=== PATIENT | male | born 1940 | race Caucasian/White ===

== ENCOUNTER 2016-10-03 23:29 | Inpatient (IN) | payer MEDICARE, OTHER ==
[2016-10-03 23:57] LABS: % BASOPHILS 0.4 % (0.0-2.0); % EOSINOPHILS 1.8 % (0.0-5.0); % LYMPHOCYTES 26.1 % (20.0-50.0); % MONOCYTES 7.3 % (2.0-10.0); % NEUTROPHILS 64.4 % (40.0-80.0); HEMATOCRIT 43.4 % (39.0-49.0); HEMOGLOBIN 14.4 gm/dL (12.6-17.4); MEAN CELL VOLUME 92.7 fl (80-99); MEAN CORPUSCULAR HEMOGLOBIN 30.7 pg (27.0-31.0); MEAN CORPUSCULAR HGB CONC 33.2 pg (28.0-36.0); MEAN PLATELET VOLUME 7.5 fl; NEUTROPHILE ABSOLUTE 4.6 Th/cmm (1.8-8.0); PLATELET COUNT 362 Th/cmm (150-400); RED BLOOD COUNT 4.69 Mil/cmm (3.80-5.80); RED CELL DISTRIBUTION WIDTH 12.8 % (11.5-20.0); WHITE BLOOD COUNT 7.1 Th/cmm (4.8-10.8)
--- NOTE | 2016-10-04 00:05 | ED Physician Chart ---
Chief Complaint/HPI - Patient Information Date Seen:: 10/03/16 Time Seen:: 23:39 Chief Complaint:: PSYCHOSIS History of Present Illness:: THIS IS A 76 YO MALE WHO WAS SENT HERE FOR EVALUATION AND TREATMENT FOR AH PSYCHIATRIC CONDITION. HE HAS BEEN REFUSING TO SHOWER, EAT AND COOPERATE WITH THE STAFF. HE ALSO REFUSES TO CHANGE CLOTHES. THIS PATIENT HAS A HISTORY OF DEPRESSION AND ANXIETY. Allergies:: Allergies Allergy/AdvReac Type Severity Reaction Status Date / Time No Known Allergies Allergy Verified 10/03/16 23:38 Vitals:: Vital Signs - 8 hr 10/03/16 23:30 Temp 98.0 F HR 94 RR 18 BP 124/87 O2 Sat % 97 Historian:: EMS, Medical Records Review:: Nurse's Note Reviewed, Transfer documents Reviewed Review of Systems - Review of Systems General/Constitutional: No fever, No chills, No weight loss, No weakness, No diaphoresis, No edema, No loss of appetite, Other (THIS PATIENT CANNOT GIVE A REVIEW OF SYSTEMS BECAUSE OF HIS ATTITUDE.) Skin: No skin lesions, No rash, No bruising Head: No headache, No light-headedness Eyes: No loss of vision, No pain, No diplopia ENT: No earache, No nasal drainage, No sore throat, No tinnitus Neck: No neck pain, No swelling, No thyromegaly, No stiffness, No mass noted Cardio Vascular: No chest pain, No palpitations, No PND, No orthopnea, No edema Pulmonary: No SOB, No cough, No sputum, No wheezing GI: No nausea, No vomiting, No diarrhea, No pain, No melena, No hematochezia, No constipation, No hematemesis G/U: No dysuria, No frequency, No hematuria Musculoskeletal: No bone or joint pain, No back pain, No muscle pain Endocrine: No polyuria, No polydipsia Psychiatric: No prior psych history, No depression, No anxiety, No suicidal ideation Hematopoietic: No bruising, No lymphadenopathy Allergic/Immuno: No urticaria, No angioedema Neurological: No syncope, No focal symptoms, No weakness, No paresthesia, No headache, No seizure, No dizziness, No confusion, No vertigo Past Medical History - Past Medical History Obtainable: Yes Past Medical History: Dementia, Other (PSYCHOSIS) Family History: None Social History: Non Smoker, No Alcohol, No Drug Use, Care Facility Surgical History: None Psychiatricy History: Depression, Schizophrenia Medication: Reviewed Family Medical History - Family Member Mother History Unknown: Yes Physical Exam - Physical Examination General/Constitutional: Awake, Well-developed, well-nourished, Alert, No distress, GCS 15, Non-toxic appearing, Ambulatory Other Gen/Cons comments:: THIS PATIENT IS THIN AND UNKEPT AND UNCOOPERATIVE Head: Atraumatic Eyes: Lids, conjuctiva normal, PERRL, EOMI Skin: Nl inspection, No rash, No skin lesions, No ecchymosis, Well hydrated, No lymphadenopathy ENMT: External ears, nose nl, Nasal exam nl, Lips, teeth, gums nl Neck: Nontender, Full ROM w/o pain, No JVD, No nuchal rigidity, No bruit, No mass, No stridor Respiratory: Nl effort/Exclusion, Clear to Auscultation, No Wheeze/Rhonchi/Rales Cardio Vascular: RRR, No murmur, gallop, rubs, NL S1 S2 GI: No tenderness/rebounding/guarding, No organomegaly, No hernia, Normal BS's, Nondistended, No mass/bruits, No McBurney tenderness : No CVA tenderness Extremities: No tenderness or effusion, Full ROM, normal strength in all extremities, No edema, Normal digits & nails Neuro/Psych: Alert/oriented, DTR's symmetric, Normal sensory exam, Normal motor strength, Judgement/insight normal, Mood normal, Normal gait, No focal deficits Misc: normal gait, Normal back, No paraspinal tenderness Labs/Radiology/EKG Results - EKG Interpretations EKG Time:: 23:53 Rate & Rhythm: 94 SINUS [place]: RIGHT AXIS Assessment - Assessment General Assessment: PSYCHOSIS THIS PATIENT IS CLEARED FOR GEROPSYCH UNIT. ED Septic Shock - . Is Septic Shock (SBP<90, OR Lactate>4 mmol\L) present?: No - <6hrs of presentation: Vital Signs: Vital Signs - 8 hr 10/03/ 23:30 Temp 98.0 F HR 94 RR 18 BP 124/87 O2 Sat % 97 Reassessment (Disposition) - Reassessment Reassessment Condition:: Unchanged - Diagnosis Diagnosis:: PSYCHOSIS - Patient Disposition Discharge/Transfer:: Acute Care w/in this hosp Admitted to:: Med/Surg Admitting Medical Physician:: Francisco Funez Admitting Psych Physician:: Camila Rodríguez Condition at Disposition:: Unchanged ED Discharge Plan - Patient Disposition Admit/Discharge/Transfer: Acute Care w/in this hosp Condition at Disposition: Unchanged
[2016-10-04 00:10] LABS: INR 0.94 (0.5-1.4); PROTHROMBIN TIME (TEST) 9.8 SECONDS (9.5-11.5)
[2016-10-04 00:12] LABS: ALB/GLOB RATIO 0.9 (1.0-1.8); ALKALINE PHOSPHATASE 73 U/L (34-104); BILIRUBIN,TOTAL 0.3 mg/dL (0.3-1.0); BUN - UREA NITROGEN 16 mg/dL (7-25); CALCIUM SERUM 9.4 mg/dL (8.6-10.3); CARBON DIOXIDE 26.3 mEq/L (21.0-31.0); CHLORIDE 103 mEq/L (98-107); CREATININE - SERUM 0.8 mg/dL (0.7-1.3); GLUCOSE 128 mg/dL (70-105); POTASSIUM SERUM 3.3 mEq/L (3.5-5.1); SGOT 39 U/L (13-39); SGPT/ALT 67 U/L (7-52); SODIUM SERUM 134 mEq/L (136-145)
[2016-10-04 00:13] LABS: CHOLESTEROL 222 mg/dL (<200); TRIGLYCERIDES 164 mg/dL (<150)
[2016-10-04] MEDS ORDERED: Potassium Chloride Elixir 20 mEq /15 mL UDC PO ONE (00:20)
[2016-10-04] MEDS ORDERED: Potassium Chloride 20 mEq ER Tab PO ONE (00:23)
[2016-10-04] MEDS ORDERED: Potassium Chloride Elixir 20 mEq /15 mL UDC ONE (00:28)
[2016-10-04] MEDS ORDERED: Maalox 30 mL Cup PO PRN (01:10)
[2016-10-04] MEDS ORDERED: Magnesium Hydroxide (MOM) 30 mL UDC PO PRN (01:10)
[2016-10-04 01:21] VITALS: BP 131/76
[2016-10-04] MEDS ORDERED: Hydrocodone/APAP 5mg/325mg Tab PO PRN (01:36)
--- NOTE | 2016-10-04 08:06 | History and Physical ---
History of Present Illness - HPI Chief Complaint: psychosis HPI: [age] y/o male who presents to [facility] ER for evaluation and treatment. Patient has been refusing to shower, eat and cooperate with the staff. He also refuses to change clothes. The patient has a history of depression and anxiety and schozophrenia. Vital Signs: Last Vital Signs Temp 98.5 F 10/04/16 05:54 Pulse 102 10/04/16 05:54 Resp 20 10/04/16 05:54 BP 129/73 10/04/16 05:54 Pulse Ox 95 10/04/16 05:54 Past Medical History Cardiovascular: Report: CAD Pulmonary: Report: No Pertinent Hx LIGHTING TECHNICIAN: Report: No Pertinent Hx GI: Report: No Pertinent Hx Psych: Report: Anxiety, Depression, Psychosis, Schizophrenia Musculoskeletal: Report: No Pertinent Hx Rheumatologic: Report: No pertinent Hx Infectious Disease: Report: No Pertinent Hx Renal/: Report: No Pertinent Hx Endocrine: Report: No Pertinent Hx Dermatology: Report: No Pertinent Hx - Past Surgical History Past Surgical History: No pertinent Hx Family Medical History - Family Member Mother History Unknown: Yes Ethnicity: Unknown Living Status: Unknown Hx Family Cancer: (Unknown) Hx Family Coronary Artery Disease: (Unknown) Hx Family Congestive Heart Failure: (Unknown) Hx Family Hypertension: (Unknown) Hx Family Stroke: (Unknown) Hx Family Diabetes: (Unknown) Hx Family Seizures: (Unknown) Hx Family Dementia: (Unknown) Hx Family AIDS: (Unknown) Hx Family HIV: No Hx Family COPD: (Unknown) Hx Family Hepatitis: (Unknown) Hx Family Psychiatric Problems: (Unknown) Hx Family Tuberculosis: (Unknown) Social History Smoke: No Alcohol: None Drugs: None Lives: [facility] - Medications Home Medications: Home Medication Medication Instructions Recorded Type Aspirin [Ecotrin] 1 tab PO DAILY 10/04/16 History Calcium Carbonate [Tums] 600 mg PO Q4HR PRN 10/04/16 History Calcium Carbonate/Vitamin D3 1 cap PO BID 10/04/16 History [Calcium 600 + Vit D 400 Softgl] Carboxymethylcellulose Sodium 1 drop EACH EYE BID PRN 10/04/16 History [Refresh Tears] Diphenhydramine HCL [Benadryl] 1 tab PO Q4HR PRN 10/04/16 History Docusate Sodium [Colace] 1 cap PO BID 10/04/16 History Hydrocodone/Acetaminophen [[place] 1 tab PO Q4H PRN 10/04/16 History 7.5-325 Tablet] Lorazepam [Ativan] 0.5 mg PO BID PRN 10/04/16 History Magnesium Hydroxide [Milk of 30 ml PO DAILY PRN 10/04/16 History Magnesia] Multivitamin with Minerals [Daily 1 tab PO DAILY 10/04/16 History Vitamin Formula-Minerals] Trazodone HCl 125 mg PO HS 10/04/16 History - Allergies Allergies/Adverse Reactions: Allergies Allergy/AdvReac Type Severity Reaction Status Date / Time No Known Allergies Allergy Verified 10/03/16 23:38 Review of Systems - Review of Systems Constitutional: Report: No Significant Eyes: Report: No Significant ENT: Report: No Significant Respiratory: Report: No Significant Cardiovascular: Report: No Significant Gastrointestinal: Report: No Significant Genitourinary: Report: No Significant Musculoskeletal: Report: No Significant Skin: Report: No Significant Neurological: Report: No Significant Physical Exam - Physical Exam HEENT: Report: Ears Nose Throat within normal limits, Pharnyx within normal limits Neck: Report: Within normal limits Cardiovascular Systems: Report: Regular, Rate and Rhythm Respiratory: Report: Breath Sounds are within normal limits, Clear to Auscultation of lung rainey Abdomen: Report: Non-tender to palpation Back: Report: Inspection of back is within normal limits. Extremities: Report: Non-tender to palpation. Skin: Report: Color of skin is within normal limits Neuro/Psych: Report: A+Ox3 - Lab Results All Lab Results last 24 hours: Laboratory Last Values WBC 7.1 Th/cmm (4.8-10.8) 10/03/16 23:45 RBC 4.69 Mil/cmm (3.80-5.80) 10/03/16 23:45 Hgb 14.4 gm/dL (12.6-17.4) 10/03/16 23:45 Hct 43.4 % (39.0-49.0) 10/03/16 23:45 MCV 92.7 fl (80-99) 10/03/16 23:45 MCH 30.7 pg (27.0-31.0) 10/03/16 23:45 MCHC Differential 33.2 pg (28.0-36.0) 10/03/16 23:45 RDW 12.8 % (11.5-20.0) 10/03/16 23:45 Plt Count 362 Th/cmm (150-400) 10/03/16 23:45 MPV 7.5 fl 10/03/16 23:45 Neutrophils % 64.4 % (40.0-80.0) 10/03/16 23:45 Lymphocytes % 26.1 % (20.0-50.0) 10/03/16 23:45 Monocytes % 7.3 % (2.0-10.0) 10/03/16 23:45 Eosinophils % 1.8 % (0.0-5.0) 10/03/16 23:45 Basophils % 0.4 % (0.0-2.0) 10/03/16 23:45 PT 9.8 SECONDS (9.5-11.5) 10/03/16 23:45 INR 0.94 (0.5-1.4) 10/03/16 23:45 PTT (Actin FS) 24.9 SECONDS (26.0-38.0) L 10/03/16 23:45 Sodium 134 mEq/L (136-145) L 10/03/16 23:45 Potassium 3.3 mEq/L (3.5-5.1) L 10/03/16 23:45 Chloride 103 mEq/L (98-107) 10/03/16 23:45 Carbon Dioxide 26.3 mEq/L (21.0-31.0) 10/03/16 23:45 Anion Gap 8.0 (7.0-16.0) 10/03/16 23:45 BUN 16 mg/dL (7-25) 10/03/16 23:45 Creatinine 0.8 mg/dL (0.7-1.3) 10/03/16 23:45 Est GFR ( Amer) TNP 10/03/16 23:45 Est GFR (Non-Af Amer) TNP 10/03/16 23:45 BUN/Creatinine Ratio 20.0 10/03/16 23:45 Glucose 128 mg/dL (70-105) H 10/03/16 23:45 Calcium 9.4 mg/dL (8.6-10.3) 10/03/16 23:45 Total Bilirubin 0.3 mg/dL (0.3-1.0) 10/03/16 23:45 AST 39 U/L (13-39) 10/03/16 23:45 ALT 67 U/L (7-52) H 10/03/16 23:45 Alkaline Phosphatase 73 U/L (34-104) 10/03/16 23:45 Troponin I 0.02 ng/mL (0.01-0.05) 10/03/16 23:45 Total Protein 5.8 gm/dL (6.0-8.3) L 10/03/16 23:45 Albumin 2.8 gm/dL (4.2-5.5) L 10/03/16 23:45 Globulin 3.0 gm/dL 10/03/16 23:45 Albumin/Globulin Ratio 0.9 (1.0-1.8) L 10/03/16 23:45 Triglycerides 164 mg/dL (<150) H 10/03/16 23:45 Cholesterol 222 mg/dL (<200) H 10/03/16 23:45 LDL Cholesterol Direct 140 mg/dL (75-193) 10/03/16 23:45 HDL Cholesterol 58 mg/dL (23-92) 10/03/16 23:45 TSH 0.89 uIU/ml (0.34-5.60) 10/03/16 23:45 - Assessment Assessment: Psychosis Major depression disorder Coronary artery disease peripheral vascular disease anxiety radiculopathy leg pain - Plan Plan: admit to [facility] specialty hospital for evaluation and treatment.
[2016-10-04] MEDS: Aspirin 81mg Chewable Tab PO SCH (09:11)
[2016-10-04] MEDS: Multivitamin Tab PO SCH (09:12)
--- NOTE | 2016-10-04 09:42 | Diagnostic Imaging Report ---
Portable chest x-ray History: Shortness of breath Allowing for portable technique the heart size is normal. Atherosclerotic calcification seen in the aortic arch. No focal pulmonary parenchymal processes. No hilar or mediastinal abnormalities. Impression: No acute abnormalities.
--- NOTE | 2016-10-04 22:08 | Admit Criteria Form ---
Admit Criteria Forms - Admit Criteria Diagnosis: PSYCHIATRIC DISORDERS (Place 'X' for any and all applicable criteria): Ongoing inpatient care may be needed for 1 or more of the following(1)(2)(3)(4)( 6)(7)(8): [ ]I. Danger to self or others not manageable at lower level of care. [ ]II. Grave disability (eg, inability to perform self care necessary at lower level of care) [ ]III. Agitation or inappropriate behavior interfering with care for primary condition (eg, attempting to discontinue lines or drains prematurely, unable to cooperate with respiratory care) [X ]IV. Severe disability or disorder indicated by ALL of the following: [X ]a) Severe behavioral health disorder-related symptoms or condition indicated by 1 or more of the following: [ ]i) Severe problem with cognition, memory, judgment, or impulse control [X ]ii) Severe clinical manifestations (eg, hallucinations , delusions, other acute psychotic symptoms, rogers, extreme agitation or anxiety) [X ]b) Patient management at lower level of care is not feasible until acute intervention or modification is initiated. Extended stay beyond goal length of stay for the primary condition may be needed until ALLof the following are present(1)(2)(3)(4)(7)19)(23): [ ]a) Danger to self or others is absent or manageable at lower level of care [ ]b) Behavior crisis management, including physical or chemical restraints, is required and is not available at a lower level of care. [ ]c) Behavioral symptoms (e.g., agitation, somnolence, inappropriate behavior) are present, and are not manageable at a lower level of care. [ ]d) Patient cannot understand follow-up treatment and crisis plan. [ ]e) Provider and supports are sufficiently available at lower level of care. [ ]f) Patient can participate (e.g., verify absence of plan for harm) and is in needed of monitoring. The [facility] content created by [facility] has been revised. The portions of the content which have been revised are identified through the use of italic text or in bold, and [facility] has neither reviewed nor approved the modified material. All other unmodified content is copyright [facility]. Please see references footnoted in the original [facility] edition 2017 Admit Criteria Met?: Yes
--- NOTE | 2016-10-05 04:44 | Psychosocial Evaluation ---
DATE OF SERVICE: 10/04/2016 IDENTIFYING DATA: The patient is a 76-year-old male, resident of [facility]. Information obtained by directly interviewing the patient as well as reviewing the admission papers and they are reliable. JUSTIFICATION HOSPITALIZATION: The patient is admitted on a voluntary basis in view of his acute agitation and refusal of care. The patient is reported to have been refusing to shower and has been becoming difficult for the staff. The patient also refusing to eat and cooperate with the staff and the patient refuses change his clothes. The patient has a history of depression, but patient at the time of the evaluation is closing eyes and is not providing much of information. Review of the chart indicated that the patient has been taking trazodone 125 mg at bedtime and [place] ____ mg every 4 hours as needed. The patient has been refusing to comply with the treatment. As mentioned earlier, sleep and appetite are noted to be very poor, personal hygiene is also noted to be very poor. PAST PSYCHIATRIC HISTORY: Details are not known. MEDICAL HISTORY: Physical examination is requested to be done by Dr. Funez. SUBSTANCE ABUSE HISTORY: None. PHYSICAL OR SEXUAL ABUSE: Details are not known. Legal problems none at this time. STRENGTH AND ASSETS: The patient is reluctant to participate in the groups and not providing much information, but seems to be very paranoid. Short and long-term memory could not be tested because the patient is not cooperating at this time. The patient's behavior is likely danger to self. The patient is neglecting himself and not eating, not sleeping. DIAGNOSTIC IMPRESSION: AXIS I: Major depressive disorder, recurrent and severe. B. Psychosis, not otherwise specified. AXIS II: None. AXIS III: As per Dr. Funez. ____ TREATMENT PLAN: The patient is going to be observed on inpatient unit, provided with supportive psychotherapy. The patient is going to be started with the trazodone and a low dose of the Seroquel. ESTIMATED LENGTH OF STAY: Three to five days. DISCHARGE CRITERIA: When he no longer a threat to self or others and be able to cope up with the stress. JOB# [id number]
--- NOTE | 2016-10-05 08:27 | General Progress Note ---
Subjective - Review of Systems Service Date: 10/05/16 Subjective: Patient afebrile, awake, alert Objective - Results Result Diagrams: 10/03/16 23:45 10/03/16 23:45 Recent Labs: Laboratory Last Values WBC 7.1 Th/cmm (4.8-10.8) 10/03/16 23:45 RBC 4.69 Mil/cmm (3.80-5.80) 10/03/16 23:45 Hgb 14.4 gm/dL (12.6-17.4) 10/03/16 23:45 Hct 43.4 % (39.0-49.0) 10/03/16 23:45 MCV 92.7 fl (80-99) 10/03/16 23:45 MCH 30.7 pg (27.0-31.0) 10/03/16 23:45 MCHC Differential 33.2 pg (28.0-36.0) 10/03/16 23:45 RDW 12.8 % (11.5-20.0) 10/03/16 23:45 Plt Count 362 Th/cmm (150-400) 10/03/16 23:45 MPV 7.5 fl 10/03/16 23:45 Neutrophils % 64.4 % (40.0-80.0) 10/03/16 23:45 Lymphocytes % 26.1 % (20.0-50.0) 10/03/16 23:45 Monocytes % 7.3 % (2.0-10.0) 10/03/16 23:45 Eosinophils % 1.8 % (0.0-5.0) 10/03/16 23:45 Basophils % 0.4 % (0.0-2.0) 10/03/16 23:45 PT 9.8 SECONDS (9.5-11.5) 10/03/16 23:45 INR 0.94 (0.5-1.4) 10/03/16 23:45 PTT (Actin FS) 24.9 SECONDS (26.0-38.0) L 10/03/16 23:45 Sodium 134 mEq/L (136-145) L 10/03/16 23:45 Potassium 3.3 mEq/L (3.5-5.1) L 10/03/16 23:45 Chloride 103 mEq/L (98-107) 10/03/16 23:45 Carbon Dioxide 26.3 mEq/L (21.0-31.0) 10/03/16 23:45 Anion Gap 8.0 (7.0-16.0) 10/03/16 23:45 BUN 16 mg/dL (7-25) 10/03/16 23:45 Creatinine 0.8 mg/dL (0.7-1.3) 10/03/16 23:45 Est GFR ( Amer) TNP 10/03/16 23:45 Est GFR (Non-Af Amer) TNP 10/03/16 23:45 BUN/Creatinine Ratio 20.0 10/03/16 23:45 Glucose 128 mg/dL (70-105) H 10/03/16 23:45 Calcium 9.4 mg/dL (8.6-10.3) 10/03/16 23:45 Total Bilirubin 0.3 mg/dL (0.3-1.0) 10/03/16 23:45 AST 39 U/L (13-39) 10/03/16 23:45 ALT 67 U/L (7-52) H 10/03/16 23:45 Alkaline Phosphatase 73 U/L (34-104) 10/03/16 23:45 Troponin I 0.02 ng/mL (0.01-0.05) 10/03/16 23:45 Total Protein 5.8 gm/dL (6.0-8.3) L 10/03/16 23:45 Albumin 2.8 gm/dL (4.2-5.5) L 10/03/16 23:45 Globulin 3.0 gm/dL 10/03/16 23:45 Albumin/Globulin Ratio 0.9 (1.0-1.8) L 10/03/16 23:45 Triglycerides 164 mg/dL (<150) H 10/03/16 23:45 Cholesterol 222 mg/dL (<200) H 10/03/16 23:45 LDL Cholesterol Direct 140 mg/dL (75-193) 10/03/16 23:45 HDL Cholesterol 58 mg/dL (23-92) 10/03/16 23:45 TSH 0.89 uIU/ml (0.34-5.60) 10/03/16 23:45 - Physical Exam Vitals and I&O: Vital Signs Temp 98.6 F 10/05/16 06:40 Pulse 106 10/05/16 06:40 Resp 20 10/05/16 06:40 BP 110/76 10/05/16 06:40 Pulse Ox 95 10/05/16 06:40 Intake & Output 10/04/16 10/05/16 10/05/16 18:59 06:59 18:59 Intake Total 800 240 Balance 800 240 Intake: Oral 800 240 Other: # Voids 3 2 # Bowel Movements 0 1 Active Medications: Current Medications Acetaminophen (Tylenol) 650 mg PO Q4HR PRN PRN Reason: Mild Pain / Temp above 100 Stop: 12/03/16 01:09 Acetaminophen/Hydrocodone Bitart ([place] 5mg/325mg) 1 tab PO Q4H PRN PRN Reason: Pain (Moderate) Stop: 12/03/16 01:35 Al Hydrox/Mg Hydrox/Simethicone (Maalox) 30 ml PO Q4HR PRN PRN Reason: GI DISTRESS Stop: 12/03/16 01:09 Aspirin (Aspirin Chewable) 81 mg PO DAILY [facility] Stop: 12/03/16 08:59 Last Admin: 10/04/16 09:11 Dose: 81 mg Calcium Carbonate (Tums) 500 mg PO Q4HR PRN PRN Reason: GI upset Stop: 12/03/16 03:59 Diphenhydramine HCl (Benadryl) 25 mg PO Q4HR PRN PRN Reason: Itching Stop: 12/03/16 01:31 Docusate Sodium (Colace) 250 mg PO BID DOMINGO Stop: 12/03/16 08:59 Last Admin: 10/04/16 16:53 Dose: 250 mg Lorazepam (Ativan) 0.5 mg PO Q4HR PRN; Protocol PRN Reason: Anxiety Stop: 11/03/16 01:09 Magnesium Hydroxide (Milk Of Magnesia) 30 ml PO HS PRN PRN Reason: Constipation Multivitamins/Vitamin C (Theragran) 1 tab PO DAILY DOMINGO Stop: 12/03/16 08:59 Last Admin: 10/04/16 09:12 Dose: 1 tab Quetiapine Fumarate (Seroquel) 12.5 mg PO HS DOMINGO PRN Reason: Protocol Stop: 12/03/16 20:59 Last Admin: 10/04/16 21:11 Dose: Not Given Trazodone HCl (Desyrel) 50 mg PO HS DOMINGO PRN Reason: Protocol Stop: 12/03/16 20:59 Last Admin: 10/04/16 21:11 Dose: Not Given Zolpidem Tartrate (Ambien) 5 mg PO HS PRN PRN Reason: Insomnia Stop: 12/03/16 01:09 Assessment/Plan - Assessment Assessment: Psychosis Major depression disorder Coronary artery disease peripheral vascular disease anxiety radiculopathy leg pain - Plan Plan: Patient is medically stable will continue current treatment.
[2016-10-05] MEDS: Aspirin 81mg Chewable Tab PO SCH (08:32)
[2016-10-05] MEDS: Multivitamin Tab PO SCH (08:32)
--- NOTE | 2016-10-05 23:23 | Progress Notes ---
DATE: 10/05/2016 SUBJECTIVE: Staff was spoken to. The patient is interviewed. Mood is noted to be irritable. Affect is constricted. Coping skills are noted to be very poor. The patient is refusing to comply with the treatment. The patient has been refusing to follow any of the directions. Insight and judgment at this time are noted to be very much impaired. Impulse control seems to be poor. Coping skills are also noted to be poor. The patient has no insight into his illness. The patient has been ordered to take a low dose of the Seroquel, but the patient has been refusing even the 12.5 mg that has been ordered. The patient's sleep and appetite are also noted to be very poor. ASSESSMENT: The patient is still psychotic. PLAN: To continue the patient with the current medications. I encouraged the patient to verbalize the concerns rather than to act out. If the patient continues to be this way probably a Riese hearing is going to be done. [facility]# [id number]
--- NOTE | 2016-10-06 07:30 | General Progress Note ---
Subjective - Review of Systems Service Date: 10/06/16 Subjective: Patient afebrile, awake, alert Objective - Results Result Diagrams: 10/03/16 23:45 10/03/16 23:45 Recent Labs: Laboratory Last Values WBC 7.1 Th/cmm (4.8-10.8) 10/03/16 23:45 RBC 4.69 Mil/cmm (3.80-5.80) 10/03/16 23:45 Hgb 14.4 gm/dL (12.6-17.4) 10/03/16 23:45 Hct 43.4 % (39.0-49.0) 10/03/16 23:45 MCV 92.7 fl (80-99) 10/03/16 23:45 MCH 30.7 pg (27.0-31.0) 10/03/16 23:45 MCHC Differential 33.2 pg (28.0-36.0) 10/03/16 23:45 RDW 12.8 % (11.5-20.0) 10/03/16 23:45 Plt Count 362 Th/cmm (150-400) 10/03/16 23:45 MPV 7.5 fl 10/03/16 23:45 Neutrophils % 64.4 % (40.0-80.0) 10/03/16 23:45 Lymphocytes % 26.1 % (20.0-50.0) 10/03/16 23:45 Monocytes % 7.3 % (2.0-10.0) 10/03/16 23:45 Eosinophils % 1.8 % (0.0-5.0) 10/03/16 23:45 Basophils % 0.4 % (0.0-2.0) 10/03/16 23:45 PT 9.8 SECONDS (9.5-11.5) 10/03/16 23:45 INR 0.94 (0.5-1.4) 10/03/16 23:45 PTT (Actin FS) 24.9 SECONDS (26.0-38.0) L 10/03/16 23:45 Sodium 134 mEq/L (136-145) L 10/03/16 23:45 Potassium 3.3 mEq/L (3.5-5.1) L 10/03/16 23:45 Chloride 103 mEq/L (98-107) 10/03/16 23:45 Carbon Dioxide 26.3 mEq/L (21.0-31.0) 10/03/16 23:45 Anion Gap 8.0 (7.0-16.0) 10/03/16 23:45 BUN 16 mg/dL (7-25) 10/03/16 23:45 Creatinine 0.8 mg/dL (0.7-1.3) 10/03/16 23:45 Est GFR ( Amer) TNP 10/03/16 23:45 Est GFR (Non-Af Amer) TNP 10/03/16 23:45 BUN/Creatinine Ratio 20.0 10/03/16 23:45 Glucose 128 mg/dL (70-105) H 10/03/16 23:45 Calcium 9.4 mg/dL (8.6-10.3) 10/03/16 23:45 Total Bilirubin 0.3 mg/dL (0.3-1.0) 10/03/16 23:45 AST 39 U/L (13-39) 10/03/16 23:45 ALT 67 U/L (7-52) H 10/03/16 23:45 Alkaline Phosphatase 73 U/L (34-104) 10/03/16 23:45 Troponin I 0.02 ng/mL (0.01-0.05) 10/03/16 23:45 Total Protein 5.8 gm/dL (6.0-8.3) L 10/03/16 23:45 Albumin 2.8 gm/dL (4.2-5.5) L 10/03/16 23:45 Globulin 3.0 gm/dL 10/03/16 23:45 Albumin/Globulin Ratio 0.9 (1.0-1.8) L 10/03/16 23:45 Triglycerides 164 mg/dL (<150) H 10/03/16 23:45 Cholesterol 222 mg/dL (<200) H 10/03/16 23:45 LDL Cholesterol Direct 140 mg/dL (75-193) 10/03/16 23:45 HDL Cholesterol 58 mg/dL (23-92) 10/03/16 23:45 TSH 0.89 uIU/ml (0.34-5.60) 10/03/16 23:45 - Physical Exam Vitals and I&O: Vital Signs Temp 98.2 F 10/06/16 06:51 Pulse 110 10/06/16 06:51 Resp 19 10/06/16 06:51 BP 125/71 10/06/16 06:51 Pulse Ox 98 10/06/16 06:51 Intake & Output 10/05/16 10/06/16 10/06/16 18:59 06:59 18:59 Intake Total 1040 Balance 1040 Intake: Oral 1040 Other: # Voids 3 Stool Characteristics Soft Active Medications: Current Medications Acetaminophen (Tylenol) 650 mg PO Q4HR PRN PRN Reason: Mild Pain / Temp above 100 Stop: 12/03/16 01:09 Acetaminophen/Hydrocodone Bitart ([place] 5mg/325mg) 1 tab PO Q4H PRN PRN Reason: Pain (Moderate) Stop: 12/03/16 01:35 Al Hydrox/Mg Hydrox/Simethicone (Maalox) 30 ml PO Q4HR PRN PRN Reason: GI DISTRESS Stop: 12/03/16 01:09 Aspirin (Aspirin Chewable) 81 mg PO DAILY [facility] Stop: 12/03/16 08:59 Last Admin: 10/05/16 08:32 Dose: Not Given Calcium Carbonate (Tums) 500 mg PO Q4HR PRN PRN Reason: GI upset Stop: 12/03/16 03:59 Diphenhydramine HCl (Benadryl) 25 mg PO Q4HR PRN PRN Reason: Itching Stop: 12/03/16 01:31 Docusate Sodium (Colace) 250 mg PO BID [facility] Stop: 12/03/16 08:59 Last Admin: 10/05/16 16:15 Dose: Not Given Lorazepam (Ativan) 0.5 mg PO Q4HR PRN; Protocol PRN Reason: Anxiety Stop: 11/03/16 01:09 Magnesium Hydroxide (Milk Of Magnesia) 30 ml PO HS PRN PRN Reason: Constipation Multivitamins/Vitamin C (Theragran) 1 tab PO DAILY [facility]INGO Stop: 12/03/16 08:59 Last Admin: 10/05/16 08:32 Dose: Not Given Quetiapine Fumarate (Seroquel) 12.5 mg PO HS DOMINGO PRN Reason: Protocol Stop: 12/03/16 20:59 Last Admin: 10/05/16 20:58 Dose: Not Given Trazodone HCl (Desyrel) 50 mg PO HS DOMINGO PRN Reason: Protocol Stop: 12/03/16 20:59 Last Admin: 10/05/16 20:58 Dose: Not Given Zolpidem Tartrate (Ambien) 5 mg PO HS PRN PRN Reason: Insomnia Stop: 12/03/16 01:09 General: Alert, No acute distress HEENT: Atraumatic, PERRLA, EOMI Neck: Supple Cardiovascular: Regular rate, Normal S1, Normal S2 Lungs: Clear to auscultation Abdomen: Bowel sounds Assessment/Plan - Problem List Patient Problems: All Active Problems Anxiety (Acute) F41.9 Coronary artery disease (Acute) I25.10 Major depression (Acute) F32.9 Peripheral vascular disease (Acute) I73.9 Psychosis (Acute) F29 Radiculopathy (Acute) M54.10 - Assessment Assessment: Psychosis Major depression disorder Coronary artery disease peripheral vascular disease anxiety radiculopathy leg pain - Plan Plan: Patient is medically stable will continue current treatment.
[2016-10-06] MEDS: Aspirin 81mg Chewable Tab PO SCH (08:35)
[2016-10-06] MEDS: Multivitamin Tab PO SCH (08:35)
--- NOTE | 2016-10-06 12:00 | Progress Notes ---
DATE: 10/06/2016 PSYCHITRIC PROGRESS NOTE SUBJECTIVE: Staff has spoken to the patient. The patient is interviewed. Mood is noted to be irritable. Affect is constricted. The patient is refusing to comply with any of the medications. The patient is refusing to eat or drink fluids. The patient is getting dehydrated. The patient has a strong body odor. The patient has been informed that if he continues to be like this and the behavior is becoming a danger to self, possibly the patient is going to be requested to have a PEG placement and the primary care doctor is going to be informed about this. ASSESSMENT: The patient is still grossly psychotic and depressed. PLAN: To continue the patient with supportive therapy and follow up. JOB# [id number]
--- NOTE | 2016-10-07 07:36 | General Progress Note ---
Subjective - Review of Systems Service Date: 10/07/16 Subjective: Patient afebrile, awake, alert. no new complaints. Objective - Results Result Diagrams: 10/03/16 23:45 10/03/16 23:45 Recent Labs: Laboratory Last Values WBC 7.1 Th/cmm (4.8-10.8) 10/03/16 23:45 RBC 4.69 Mil/cmm (3.80-5.80) 10/03/16 23:45 Hgb 14.4 gm/dL (12.6-17.4) 10/03/16 23:45 Hct 43.4 % (39.0-49.0) 10/03/16 23:45 MCV 92.7 fl (80-99) 10/03/16 23:45 MCH 30.7 pg (27.0-31.0) 10/03/16 23:45 MCHC Differential 33.2 pg (28.0-36.0) 10/03/16 23:45 RDW 12.8 % (11.5-20.0) 10/03/16 23:45 Plt Count 362 Th/cmm (150-400) 10/03/16 23:45 MPV 7.5 fl 10/03/16 23:45 Neutrophils % 64.4 % (40.0-80.0) 10/03/16 23:45 Lymphocytes % 26.1 % (20.0-50.0) 10/03/16 23:45 Monocytes % 7.3 % (2.0-10.0) 10/03/16 23:45 Eosinophils % 1.8 % (0.0-5.0) 10/03/16 23:45 Basophils % 0.4 % (0.0-2.0) 10/03/16 23:45 PT 9.8 SECONDS (9.5-11.5) 10/03/16 23:45 INR 0.94 (0.5-1.4) 10/03/16 23:45 PTT (Actin FS) 24.9 SECONDS (26.0-38.0) L 10/03/16 23:45 Sodium 134 mEq/L (136-145) L 10/03/16 23:45 Potassium 3.3 mEq/L (3.5-5.1) L 10/03/16 23:45 Chloride 103 mEq/L (98-107) 10/03/16 23:45 Carbon Dioxide 26.3 mEq/L (21.0-31.0) 10/03/16 23:45 Anion Gap 8.0 (7.0-16.0) 10/03/16 23:45 BUN 16 mg/dL (7-25) 10/03/16 23:45 Creatinine 0.8 mg/dL (0.7-1.3) 10/03/16 23:45 Est GFR ( Amer) TNP 10/03/16 23:45 Est GFR (Non-Af Amer) TNP 10/03/16 23:45 BUN/Creatinine Ratio 20.0 10/03/16 23:45 Glucose 128 mg/dL (70-105) H 10/03/16 23:45 Calcium 9.4 mg/dL (8.6-10.3) 10/03/16 23:45 Total Bilirubin 0.3 mg/dL (0.3-1.0) 10/03/16 23:45 AST 39 U/L (13-39) 10/03/16 23:45 ALT 67 U/L (7-52) H 10/03/16 23:45 Alkaline Phosphatase 73 U/L (34-104) 10/03/16 23:45 Troponin I 0.02 ng/mL (0.01-0.05) 10/03/16 23:45 Total Protein 5.8 gm/dL (6.0-8.3) L 10/03/16 23:45 Albumin 2.8 gm/dL (4.2-5.5) L 10/03/16 23:45 Globulin 3.0 gm/dL 10/03/16 23:45 Albumin/Globulin Ratio 0.9 (1.0-1.8) L 10/03/16 23:45 Triglycerides 164 mg/dL (<150) H 10/03/16 23:45 Cholesterol 222 mg/dL (<200) H 10/03/16 23:45 LDL Cholesterol Direct 140 mg/dL (75-193) 10/03/16 23:45 HDL Cholesterol 58 mg/dL (23-92) 10/03/16 23:45 TSH 0.89 uIU/ml (0.34-5.60) 10/03/16 23:45 RPR NONREACTIVE (NONREACTIVE) 10/03/16 23:45 - Physical Exam Vitals and I&O: Vital Signs Temp 98.4 F 10/07/16 06:22 Pulse 109 10/07/16 06:22 Resp 20 10/07/16 06:22 BP 122/81 10/07/16 06:22 Pulse Ox 93 10/07/16 06:22 Intake & Output 10/06/16 10/07/16 10/07/16 18:59 06:59 18:59 Intake Total 1000 80 Balance 1000 80 Intake: Oral 1000 80 Other: # Voids 3 1 # Bowel Movements 1 0 Active Medications: Current Medications Acetaminophen (Tylenol) 650 mg PO Q4HR PRN PRN Reason: Mild Pain / Temp above 100 Stop: 12/03/16 01:09 Acetaminophen/Hydrocodone Bitart ([place] 5mg/325mg) 1 tab PO Q4H PRN PRN Reason: Pain (Moderate) Stop: 12/03/16 01:35 Al Hydrox/Mg Hydrox/Simethicone (Maalox) 30 ml PO Q4HR PRN PRN Reason: GI DISTRESS Stop: 12/03/16 01:09 Aspirin (Aspirin Chewable) 81 mg PO DAILY [facility] Stop: 12/03/16 08:59 Last Admin: 10/06/16 08:35 Dose: Not Given Calcium Carbonate (Tums) 500 mg PO Q4HR PRN PRN Reason: GI upset Stop: 12/03/16 03:59 Diphenhydramine HCl (Benadryl) 25 mg PO Q4HR PRN PRN Reason: Itching Stop: 12/03/16 01:31 Docusate Sodium (Colace) 250 mg PO BID [facility] Stop: 12/03/16 08:59 Last Admin: 10/06/16 16:31 Dose: Not Given Lorazepam (Ativan) 0.5 mg PO Q4HR PRN; Protocol PRN Reason: Anxiety Stop: 11/03/16 01:09 Magnesium Hydroxide (Milk Of Magnesia) 30 ml PO HS PRN PRN Reason: Constipation Multivitamins/Vitamin C (Theragran) 1 tab PO DAILY [facility] Stop: 12/03/16 08:59 Last Admin: 10/06/16 08:35 Dose: Not Given Quetiapine Fumarate (Seroquel) 12.5 mg PO HS [facility]INGO PRN Reason: Protocol Stop: 12/03/16 20:59 Last Admin: 10/06/16 21:08 Dose: Not Given Trazodone HCl (Desyrel) 50 mg PO HS [facility]INGO PRN Reason: Protocol Stop: 12/03/16 20:59 Last Admin: 10/06/16 21:08 Dose: Not Given Zolpidem Tartrate (Ambien) 5 mg PO HS PRN PRN Reason: Insomnia Stop: 12/03/16 01:09 General: Alert, No acute distress HEENT: Atraumatic, PERRLA, EOMI Neck: Supple Cardiovascular: Regular rate, Normal S1, Normal S2 Lungs: Clear to auscultation Abdomen: Bowel sounds Assessment/Plan - Problem List Patient Problems: All Active Problems Anxiety (Acute) F41.9 Coronary artery disease (Acute) I25.10 Hypokalemia (Acute) E87.6 Hyponatremia (Acute) E87.1 Major depression (Acute) F32.9 Peripheral vascular disease (Acute) I73.9 Psychosis (Acute) F29 Radiculopathy (Acute) M54.10 - Assessment Assessment: Psychosis Major depression disorder Coronary artery disease peripheral vascular disease anxiety radiculopathy leg pain hyponatremia hypokalemia - Plan Plan: Psychosis Major depression disorder Coronary artery disease peripheral vascular disease anxiety radiculopathy leg pain hyponatremia -- repeat BMP hypokalemia -- repeat K+ level
[2016-10-07] MEDS: Aspirin 81mg Chewable Tab PO SCH (08:17)
[2016-10-07] MEDS: Multivitamin Tab PO SCH (08:17)
--- NOTE | 2016-10-08 01:17 | Progress Notes ---
DATE: 10/07/2016 SUBJECTIVE: The patient was seen, discussed with staff. Remains irritable, anxious, still guarded. The patient at times refusing to comply with treatment, off and on. The patient with still poor impulse control. ASSESSMENT: The patient is still in psychotic phase. PLAN: Continue hospitalization. Continue medication management. Encouraged the patient to comply with treatment p.o. intake is being monitored. [facility]# [id number]
--- NOTE | 2016-10-08 06:26 | General Progress Note ---
Subjective - Review of Systems Service Date: 10/08/16 Subjective: Patient afebrile, awake, alert. no new complaints. Objective - Results Result Diagrams: 10/03/16 23:45 10/03/16 23:45 Recent Labs: Laboratory Last Values WBC 7.1 Th/cmm (4.8-10.8) 10/03/16 23:45 RBC 4.69 Mil/cmm (3.80-5.80) 10/03/16 23:45 Hgb 14.4 gm/dL (12.6-17.4) 10/03/16 23:45 Hct 43.4 % (39.0-49.0) 10/03/16 23:45 MCV 92.7 fl (80-99) 10/03/16 23:45 MCH 30.7 pg (27.0-31.0) 10/03/16 23:45 MCHC Differential 33.2 pg (28.0-36.0) 10/03/16 23:45 RDW 12.8 % (11.5-20.0) 10/03/16 23:45 Plt Count 362 Th/cmm (150-400) 10/03/16 23:45 MPV 7.5 fl 10/03/16 23:45 Neutrophils % 64.4 % (40.0-80.0) 10/03/16 23:45 Lymphocytes % 26.1 % (20.0-50.0) 10/03/16 23:45 Monocytes % 7.3 % (2.0-10.0) 10/03/16 23:45 Eosinophils % 1.8 % (0.0-5.0) 10/03/16 23:45 Basophils % 0.4 % (0.0-2.0) 10/03/16 23:45 PT 9.8 SECONDS (9.5-11.5) 10/03/16 23:45 INR 0.94 (0.5-1.4) 10/03/16 23:45 PTT (Actin FS) 24.9 SECONDS (26.0-38.0) L 10/03/16 23:45 Sodium 134 mEq/L (136-145) L 10/03/16 23:45 Potassium 3.3 mEq/L (3.5-5.1) L 10/03/16 23:45 Chloride 103 mEq/L (98-107) 10/03/16 23:45 Carbon Dioxide 26.3 mEq/L (21.0-31.0) 10/03/16 23:45 Anion Gap 8.0 (7.0-16.0) 10/03/16 23:45 BUN 16 mg/dL (7-25) 10/03/16 23:45 Creatinine 0.8 mg/dL (0.7-1.3) 10/03/16 23:45 Est GFR ( Amer) TNP 10/03/16 23:45 Est GFR (Non-Af Amer) TNP 10/03/16 23:45 BUN/Creatinine Ratio 20.0 10/03/16 23:45 Glucose 128 mg/dL (70-105) H 10/03/16 23:45 Calcium 9.4 mg/dL (8.6-10.3) 10/03/16 23:45 Total Bilirubin 0.3 mg/dL (0.3-1.0) 10/03/16 23:45 AST 39 U/L (13-39) 10/03/16 23:45 ALT 67 U/L (7-52) H 10/03/16 23:45 Alkaline Phosphatase 73 U/L (34-104) 10/03/16 23:45 Troponin I 0.02 ng/mL (0.01-0.05) 10/03/16 23:45 Total Protein 5.8 gm/dL (6.0-8.3) L 10/03/16 23:45 Albumin 2.8 gm/dL (4.2-5.5) L 10/03/16 23:45 Globulin 3.0 gm/dL 10/03/16 23:45 Albumin/Globulin Ratio 0.9 (1.0-1.8) L 10/03/16 23:45 Triglycerides 164 mg/dL (<150) H 10/03/16 23:45 Cholesterol 222 mg/dL (<200) H 10/03/16 23:45 LDL Cholesterol Direct 140 mg/dL (75-193) 10/03/16 23:45 HDL Cholesterol 58 mg/dL (23-92) 10/03/16 23:45 TSH 0.89 uIU/ml (0.34-5.60) 10/03/16 23:45 RPR NONREACTIVE (NONREACTIVE) 10/03/16 23:45 - Physical Exam Vitals and I&O: Vital Signs Temp 97.9 F 10/07/16 20:00 Pulse 90 10/07/16 20:00 Resp 19 10/07/16 20:00 BP 130/79 10/07/16 20:00 Pulse Ox 96 10/07/16 20:00 Intake & Output 10/07/16 10/07/16 10/08/16 06:59 18:59 06:59 Intake Total 80 1000 0 Balance 80 1000 0 Weight (lbs) 54.975 kg Intake: Oral 80 1000 0 Other: # Voids 1 4 1 # Bowel Movements 0 1 0 Active Medications: Current Medications Acetaminophen (Tylenol) 650 mg PO Q4HR PRN PRN Reason: Mild Pain / Temp above 100 Stop: 12/03/16 01:09 Acetaminophen/Hydrocodone Bitart ([place] 5mg/325mg) 1 tab PO Q4H PRN PRN Reason: Pain (Moderate) Stop: 12/03/16 01:35 Al Hydrox/Mg Hydrox/Simethicone (Maalox) 30 ml PO Q4HR PRN PRN Reason: GI DISTRESS Stop: 12/03/16 01:09 Aspirin (Aspirin Chewable) 81 mg PO DAILY [facility] Stop: 12/03/16 08:59 Last Admin: 10/07/16 08:17 Dose: Not Given Calcium Carbonate (Tums) 500 mg PO Q4HR PRN PRN Reason: GI upset Stop: 12/03/16 03:59 Diphenhydramine HCl (Benadryl) 25 mg PO Q4HR PRN PRN Reason: Itching Stop: 12/03/16 01:31 Docusate Sodium (Colace) 250 mg PO BID [facility] Stop: 12/03/16 08:59 Last Admin: 10/07/16 16:14 Dose: Not Given Lorazepam (Ativan) 0.5 mg PO Q4HR PRN; Protocol PRN Reason: Anxiety Stop: 11/03/16 01:09 Magnesium Hydroxide (Milk Of Magnesia) 30 ml PO HS PRN PRN Reason: Constipation Multivitamins/Vitamin C (Theragran) 1 tab PO DAILY [facility] Stop: 12/03/16 08:59 Last Admin: 10/07/16 08:17 Dose: Not Given Quetiapine Fumarate (Seroquel) 12.5 mg PO HS DOMINGO PRN Reason: Protocol Stop: 12/03/16 20:59 Last Admin: 10/07/16 21:10 Dose: Not Given Trazodone HCl (Desyrel) 50 mg PO HS [facility]INGO PRN Reason: Protocol Stop: 12/03/16 20:59 Last Admin: 10/07/16 21:11 Dose: Not Given Zolpidem Tartrate (Ambien) 5 mg PO HS PRN PRN Reason: Insomnia Stop: 12/03/16 01:09 General: Alert, No acute distress HEENT: Atraumatic, PERRLA, EOMI Neck: Supple Cardiovascular: Regular rate, Normal S1, Normal S2 Lungs: Clear to auscultation Abdomen: Bowel sounds Assessment/Plan - Problem List Patient Problems: All Active Problems Anxiety (Acute) F41.9 Coronary artery disease (Acute) I25.10 Hypokalemia (Acute) E87.6 Hyponatremia (Acute) E87.1 Major depression (Acute) F32.9 Peripheral vascular disease (Acute) I73.9 Psychosis (Acute) F29 Radiculopathy (Acute) M54.10 - Assessment Assessment: Psychosis Major depression disorder Coronary artery disease peripheral vascular disease anxiety radiculopathy leg pain hyponatremia hypokalemia - Plan Plan: Psychosis Major depression disorder Coronary artery disease peripheral vascular disease anxiety radiculopathy leg pain hyponatremia -- repeat BMP hypokalemia -- repeat K+ level Nutritional Asmnt/Malnutr-PDOC - Dietary Evaluation Malnutrition Findings (Please click <Entered> for more info): Nutritional Asmnt/Malnutrition Start: 10/07/16 12: 20 Text: Status: Complete Freq: Document 10/07/16 12:20 GSUN (Rec: 10/07/16 12:36 GSUN [email or web address]) Nutritional Asmnt/Malnutrition Patient General Information Nutritional Screening Moderate Risk Screening Diagnosis Major depressive disorder recurrent and severe, psychosis Pertinent Medical Hx/Surgical Hx CAD, anxiety, depression, psychosis, schizophrenia Subjective Information 76 year old male from SNF. RN expressed concern regarding pt 's nutrition status to RD on pt's adm day, RD attempted to visit pt 10/05 and 10/06, both days pt refused to speak to RD . Spoke to pt today, pt was alert, appeared very guarded. Pt refused meals on adm, avg 25% of meals yesterday. Pt suspected water pitcher at bedside was polluted, RD provided new pitcher, pt drank most of it. Pt reported drinking Boost and juice for breakfast, RD encouraged trying solid foods balanced diet for lunch, pt agreeable to plan. Pt stated he "kind of " feels hungry. Pt with few teeth missing, denied difficulties. Pt unsure of UBW , appeared thin, guarded and under blankets, unable to complete physical assessment due to this. CBW 121.2lb via bedscale includes personal blanket. Current Diet Order/ Nutrition Support Regular, Boost Daily Pertinent Medications Tums, Colace, MOM, Theragran, Seroquel Pertinent Labs 10/03: triglycerides 164H, cholesterol 222H, glucose 128H Nutritional Hx/Data Height 1.7 m Height (Calculated Centimeters) 170.2 Current Weight (lbs) 54.975 kg Weight (Calculated Kilograms) 55.0 Weight (Calculated Grams) 16841.4 [place] Body Weight 148 Weight Status Approriate GI Symptoms Food Allergies No Skin Integrity/Comment: [place] 18. Skin intact. Current %PO Negligible < 25% Estimated Nutritional Goals Calories/Kcals/Kg IBW 148lb/67.3kg Kcals Calculated 1683-2019kcal (25-30kcla/kg) Protein Calculated 67g (1g/kg) Fluid: ml 1683-2019ml (1ml/kcal) Nutritional Problem 1. Problem Problem Inadequate oral food beverage intake related to Etiology likely cognition aeb Signs/Symptoms: pt thinks water pitcher is polluted, refusing meals on adm Intervention/Recommendation Comments 1. Continue with current diet order. Avg PO intake is inadequate but appears to be improving. Nursing staff to encourage meals and ensure food safety, pt appeared suspicious regarding food. 2. Monitor weight, BMI 19. Expected Outcomes/Goals Expected Outcomes/Goals 1. PO intake to meet at least 75% of estimated nutritional needs.
[2016-10-08 10:28] LABS: BUN - UREA NITROGEN 18 mg/dL (7-25); BUN/CREATININE RATIO 25.7; CALCIUM SERUM 8.1 mg/dL (8.6-10.3); CARBON DIOXIDE 25.7 mEq/L (21.0-31.0); CHLORIDE 104 mEq/L (98-107); CREATININE - SERUM 0.7 mg/dL (0.7-1.3); GLUCOSE 151 mg/dL (70-105); POTASSIUM SERUM 3.7 mEq/L (3.5-5.1); SODIUM SERUM 133 mEq/L (136-145)
[2016-10-08] MEDS: Aspirin 81mg Chewable Tab PO SCH (10:29)
[2016-10-08] MEDS: Multivitamin Tab PO SCH (10:29)
--- NOTE | 2016-10-08 21:08 | Progress Notes ---
DATE: 10/08/2016 SUBJECTIVE: The patient was seen, discussed with staff, chart reviewed. Still guarded, isolative, paranoid. The patient has not been taking his medications last night and today for no apparent reason. His short-term memory is impaired, did not know his age, did not know the date today, but his long-term memory is fair, able to tell his date of . ASSESSMENT: The patient is still paranoid and confused. PLAN: Continue hospitalization. Encouraged the patient to comply with treatment. Continue supportive measures. JOB# [id number]
--- NOTE | 2016-10-09 07:42 | General Progress Note ---
Subjective - Review of Systems Service Date: 10/09/16 Subjective: Patient afebrile, awake, alert. no new complaints. Objective - Results Result Diagrams: 10/03/16 23:45 10/08/16 09:55 Recent Labs: Laboratory Last Values WBC 7.1 Th/cmm (4.8-10.8) 10/03/16 23:45 RBC 4.69 Mil/cmm (3.80-5.80) 10/03/16 23:45 Hgb 14.4 gm/dL (12.6-17.4) 10/03/16 23:45 Hct 43.4 % (39.0-49.0) 10/03/16 23:45 MCV 92.7 fl (80-99) 10/03/16 23:45 MCH 30.7 pg (27.0-31.0) 10/03/16 23:45 MCHC Differential 33.2 pg (28.0-36.0) 10/03/16 23:45 RDW 12.8 % (11.5-20.0) 10/03/16 23:45 Plt Count 362 Th/cmm (150-400) 10/03/16 23:45 MPV 7.5 fl 10/03/16 23:45 Neutrophils % 64.4 % (40.0-80.0) 10/03/16 23:45 Lymphocytes % 26.1 % (20.0-50.0) 10/03/16 23:45 Monocytes % 7.3 % (2.0-10.0) 10/03/16 23:45 Eosinophils % 1.8 % (0.0-5.0) 10/03/16 23:45 Basophils % 0.4 % (0.0-2.0) 10/03/16 23:45 PT 9.8 SECONDS (9.5-11.5) 10/03/16 23:45 INR 0.94 (0.5-1.4) 10/03/16 23:45 PTT (Actin FS) 24.9 SECONDS (26.0-38.0) L 10/03/16 23:45 Sodium 133 mEq/L (136-145) L 10/08/16 09:55 Potassium 3.7 mEq/L (3.5-5.1) 10/08/16 09:55 Chloride 104 mEq/L (98-107) 10/08/16 09:55 Carbon Dioxide 25.7 mEq/L (21.0-31.0) 10/08/16 09:55 Anion Gap 7.0 (7.0-16.0) 10/08/16 09:55 BUN 18 mg/dL (7-25) 10/08/16 09:55 Creatinine 0.7 mg/dL (0.7-1.3) 10/08/16 09:55 Est GFR ( Amer) TNP 10/08/16 09:55 Est GFR (Non-Af Amer) TNP 10/08/16 09:55 BUN/Creatinine Ratio 25.7 10/08/16 09:55 Glucose 151 mg/dL (70-105) H 10/08/16 09:55 Calcium 8.1 mg/dL (8.6-10.3) L 10/08/16 09:55 Total Bilirubin 0.3 mg/dL (0.3-1.0) 10/03/16 23:45 AST 39 U/L (13-39) 10/03/16 23:45 ALT 67 U/L (7-52) H 10/03/16 23:45 Alkaline Phosphatase 73 U/L (34-104) 10/03/16 23:45 Troponin I 0.02 ng/mL (0.01-0.05) 10/03/16 23:45 Total Protein 5.8 gm/dL (6.0-8.3) L 10/03/16 23:45 Albumin 2.8 gm/dL (4.2-5.5) L 10/03/16 23:45 Globulin 3.0 gm/dL 10/03/16 23:45 Albumin/Globulin Ratio 0.9 (1.0-1.8) L 10/03/16 23:45 Triglycerides 164 mg/dL (<150) H 10/03/16 23:45 Cholesterol 222 mg/dL (<200) H 10/03/16 23:45 LDL Cholesterol Direct 140 mg/dL (75-193) 10/03/16 23:45 HDL Cholesterol 58 mg/dL (23-92) 10/03/16 23:45 TSH 0.89 uIU/ml (0.34-5.60) 10/03/16 23:45 RPR NONREACTIVE (NONREACTIVE) 10/03/16 23:45 - Physical Exam Vitals and I&O: Vital Signs Temp 98.2 F 10/09/16 06:27 Pulse 93 10/09/16 06:27 Resp 20 10/09/16 06:27 BP 116/75 10/09/16 06:27 Pulse Ox 98 10/09/16 06:27 Intake & Output 10/08/16 10/09/16 10/09/16 18:59 06:59 18:59 Intake Total 1100 120 Balance 1100 120 Intake: Oral 1100 120 Other: # Voids 3 3 # Bowel Movements 1 Active Medications: Current Medications Acetaminophen (Tylenol) 650 mg PO Q4HR PRN PRN Reason: Mild Pain / Temp above 100 Stop: 12/03/16 01:09 Acetaminophen/Hydrocodone Bitart ([place] 5mg/325mg) 1 tab PO Q4H PRN PRN Reason: Pain (Moderate) Stop: 12/03/16 01:35 Al Hydrox/Mg Hydrox/Simethicone (Maalox) 30 ml PO Q4HR PRN PRN Reason: GI DISTRESS Stop: 12/03/16 01:09 Aspirin (Aspirin Chewable) 81 mg PO DAILY [facility] Stop: 12/03/16 08:59 Last Admin: 10/08/16 10:29 Dose: Not Given Calcium Carbonate (Tums) 500 mg PO Q4HR PRN PRN Reason: GI upset Stop: 12/03/16 03:59 Diphenhydramine HCl (Benadryl) 25 mg PO Q4HR PRN PRN Reason: Itching Stop: 12/03/16 01:31 Docusate Sodium (Colace) 250 mg PO BID [facility]ING[facility] Stop: 12/03/16 08:59 Last Admin: 10/08/16 16:09 Dose: Not Given Lorazepam (Ativan) 0.5 mg PO Q4HR PRN; Protocol PRN Reason: Anxiety Stop: 11/03/16 01:09 Magnesium Hydroxide (Milk Of Magnesia) 30 ml PO HS PRN PRN Reason: Constipation Multivitamins/Vitamin C (Theragran) 1 tab PO DAILY [facility] Stop: 12/03/16 08:59 Last Admin: 10/08/16 10:29 Dose: Not Given Quetiapine Fumarate (Seroquel) 12.5 mg PO HS DOMINGO PRN Reason: Protocol Stop: 12/03/16 20:59 Last Admin: 10/08/16 21:04 Dose: 12.5 mg Trazodone HCl (Desyrel) 50 mg PO HS DOMINGO PRN Reason: Protocol Stop: 12/03/16 20:59 Last Admin: 10/08/16 21:03 Dose: 50 mg Zolpidem Tartrate (Ambien) 5 mg PO HS PRN PRN Reason: Insomnia Stop: 12/03/16 01:09 General: Alert, No acute distress HEENT: Atraumatic, PERRLA, EOMI Neck: Supple Cardiovascular: Regular rate, Normal S1, Normal S2 Lungs: Clear to auscultation Abdomen: Bowel sounds Assessment/Plan - Problem List Patient Problems: All Active Problems Anxiety (Acute) F41.9 Coronary artery disease (Acute) I25.10 Hypokalemia (Acute) E87.6 Hyponatremia (Acute) E87.1 Major depression (Acute) F32.9 Peripheral vascular disease (Acute) I73.9 Psychosis (Acute) F29 Radiculopathy (Acute) M54.10 - Assessment Assessment: Psychosis Major depression disorder Coronary artery disease peripheral vascular disease anxiety radiculopathy leg pain hyponatremia hypokalemia - Plan Plan: Psychosis Major depression disorder Coronary artery disease peripheral vascular disease anxiety radiculopathy leg pain hyponatremia -- repeat BMP hypokalemia -- repeat K+ level Nutritional Asmnt/Malnutr-PDOC - Dietary Evaluation Malnutrition Findings (Please click <Entered> for more info): Nutritional Asmnt/Malnutrition Start: 10/07/16 12: 20 Text: Status: Complete Freq: Document 10/07/16 12:20 GSUN (Rec: 10/07/16 12:36 GSUN [email or web address]) Nutritional Asmnt/Malnutrition Patient General Information Nutritional Screening Moderate Risk Screening Diagnosis Major depressive disorder recurrent and severe, psychosis Pertinent Medical Hx/Surgical Hx CAD, anxiety, depression, psychosis, schizophrenia Subjective Information 76 year old male from SNF. RN expressed concern regarding pt 's nutrition status to RD on pt's adm day, RD attempted to visit pt 10/05 and 10/06, both days pt refused to speak to RD . Spoke to pt today, pt was alert, appeared very guarded. Pt refused meals on adm, avg 25% of meals yesterday. Pt suspected water pitcher at bedside was polluted, RD provided new pitcher, pt drank most of it. Pt reported drinking Boost and juice for breakfast, RD encouraged trying solid foods balanced diet for lunch, pt agreeable to plan. Pt stated he "kind of " feels hungry. Pt with few teeth missing, denied difficulties. Pt unsure of UBW , appeared thin, guarded and under blankets, unable to complete physical assessment due to this. CBW 121.2lb via bedscale includes personal blanket. Current Diet Order/ Nutrition Support Regular, Boost Daily Pertinent Medications Tums, Colace, MOM, Theragran, Seroquel Pertinent Labs 10/03: triglycerides 164H, cholesterol 222H, glucose 128H Nutritional Hx/Data Height 1.7 m Height (Calculated Centimeters) 170.2 Current Weight (lbs) 54.975 kg Weight (Calculated Kilograms) 55.0 Weight (Calculated Grams) 69088.4 [place] Body Weight 148 Weight Status Approriate GI Symptoms Food Allergies No Skin Integrity/Comment: Parth 18. Skin intact. Current %PO Negligible < 25% Estimated Nutritional Goals Calories/Kcals/Kg IBW 148lb/67.3kg Kcals Calculated 1683-2019kcal (25-30kcla/kg) Protein Calculated 67g (1g/kg) Fluid: ml 1683-2019ml (1ml/kcal) Nutritional Problem 1. Problem Problem Inadequate oral food beverage intake related to Etiology likely cognition aeb Signs/Symptoms: pt thinks water pitcher is polluted, refusing meals on adm Intervention/Recommendation Comments 1. Continue with current diet order. Avg PO intake is inadequate but appears to be improving. Nursing staff to encourage meals and ensure food safety, pt appeared suspicious regarding food. 2. Monitor weight, BMI 19. Expected Outcomes/Goals Expected Outcomes/Goals 1. PO intake to meet at least 75% of estimated nutritional needs.
[2016-10-09] MEDS: Multivitamin Tab PO SCH (09:18)
[2016-10-09] MEDS: Aspirin 81mg Chewable Tab PO SCH (09:18)
--- NOTE | 2016-10-10 02:57 | Progress Notes ---
DATE: 10/09/2016 SUBJECTIVE: I met this patient, discussed with staff, remains isolative, tends to spend most of the time in his room and in bed, require prompting from staff to leave the room. The patient, however, starts to comply with his medications. The patient still appears to be paranoid, guarded, suspicious, and somewhat forgetful. ASSESSMENT: The patient still in psychotic phase. PLAN: Continue hospitalization, continue stabilization, continue supportive measures. JOB# [id number]
--- NOTE | 2016-10-10 07:47 | General Progress Note ---
Subjective - Review of Systems Service Date: 10/10/16 Subjective: Patient afebrile, awake, alert. no new complaints. Objective - Results Result Diagrams: 10/03/16 23:45 10/08/16 09:55 Recent Labs: Laboratory Last Values WBC 7.1 Th/cmm (4.8-10.8) 10/03/16 23:45 RBC 4.69 Mil/cmm (3.80-5.80) 10/03/16 23:45 Hgb 14.4 gm/dL (12.6-17.4) 10/03/16 23:45 Hct 43.4 % (39.0-49.0) 10/03/16 23:45 MCV 92.7 fl (80-99) 10/03/16 23:45 MCH 30.7 pg (27.0-31.0) 10/03/16 23:45 MCHC Differential 33.2 pg (28.0-36.0) 10/03/16 23:45 RDW 12.8 % (11.5-20.0) 10/03/16 23:45 Plt Count 362 Th/cmm (150-400) 10/03/16 23:45 MPV 7.5 fl 10/03/16 23:45 Neutrophils % 64.4 % (40.0-80.0) 10/03/16 23:45 Lymphocytes % 26.1 % (20.0-50.0) 10/03/16 23:45 Monocytes % 7.3 % (2.0-10.0) 10/03/16 23:45 Eosinophils % 1.8 % (0.0-5.0) 10/03/16 23:45 Basophils % 0.4 % (0.0-2.0) 10/03/16 23:45 PT 9.8 SECONDS (9.5-11.5) 10/03/16 23:45 INR 0.94 (0.5-1.4) 10/03/16 23:45 PTT (Actin FS) 24.9 SECONDS (26.0-38.0) L 10/03/16 23:45 Sodium 133 mEq/L (136-145) L 10/08/16 09:55 Potassium 3.7 mEq/L (3.5-5.1) 10/08/16 09:55 Chloride 104 mEq/L (98-107) 10/08/16 09:55 Carbon Dioxide 25.7 mEq/L (21.0-31.0) 10/08/16 09:55 Anion Gap 7.0 (7.0-16.0) 10/08/16 09:55 BUN 18 mg/dL (7-25) 10/08/16 09:55 Creatinine 0.7 mg/dL (0.7-1.3) 10/08/16 09:55 Est GFR ( Amer) TNP 10/08/16 09:55 Est GFR (Non-Af Amer) TNP 10/08/16 09:55 BUN/Creatinine Ratio 25.7 10/08/16 09:55 Glucose 151 mg/dL (70-105) H 10/08/16 09:55 Calcium 8.1 mg/dL (8.6-10.3) L 10/08/16 09:55 Total Bilirubin 0.3 mg/dL (0.3-1.0) 10/03/16 23:45 AST 39 U/L (13-39) 10/03/16 23:45 ALT 67 U/L (7-52) H 10/03/16 23:45 Alkaline Phosphatase 73 U/L (34-104) 10/03/16 23:45 Troponin I 0.02 ng/mL (0.01-0.05) 10/03/16 23:45 Total Protein 5.8 gm/dL (6.0-8.3) L 10/03/16 23:45 Albumin 2.8 gm/dL (4.2-5.5) L 10/03/16 23:45 Globulin 3.0 gm/dL 10/03/16 23:45 Albumin/Globulin Ratio 0.9 (1.0-1.8) L 10/03/16 23:45 Triglycerides 164 mg/dL (<150) H 10/03/16 23:45 Cholesterol 222 mg/dL (<200) H 10/03/16 23:45 LDL Cholesterol Direct 140 mg/dL (75-193) 10/03/16 23:45 HDL Cholesterol 58 mg/dL (23-92) 10/03/16 23:45 TSH 0.89 uIU/ml (0.34-5.60) 10/03/16 23:45 RPR NONREACTIVE (NONREACTIVE) 10/03/16 23:45 - Physical Exam Vitals and I&O: Vital Signs Temp 97.6 F 10/10/16 06:53 Pulse 98 10/10/16 06:53 Resp 20 10/10/16 06:53 BP 110/68 10/10/16 06:53 Pulse Ox 97 10/10/16 06:53 Intake & Output 10/09/16 10/10/16 10/10/16 18:59 06:59 18:59 Intake Total 800 120 Output Total 3 Balance 797 120 Intake: Oral 800 120 Output: Urine 3 Other: # Voids 3 # Bowel Movements 0 Active Medications: Current Medications Acetaminophen (Tylenol) 650 mg PO Q4HR PRN PRN Reason: Mild Pain / Temp above 100 Stop: 12/03/16 01:09 Acetaminophen/Hydrocodone Bitart ([place] 5mg/325mg) 1 tab PO Q4H PRN PRN Reason: Pain (Moderate) Stop: 12/03/16 01:35 Al Hydrox/Mg Hydrox/Simethicone (Maalox) 30 ml PO Q4HR PRN PRN Reason: GI DISTRESS Stop: 12/03/16 01:09 Aspirin (Aspirin Chewable) 81 mg PO DAILY [facility] Stop: 12/03/16 08:59 Last Admin: 10/09/16 09:18 Dose: 81 mg Calcium Carbonate (Tums) 500 mg PO Q4HR PRN PRN Reason: GI upset Stop: 12/03/16 03:59 Diphenhydramine HCl (Benadryl) 25 mg PO Q4HR PRN PRN Reason: Itching Stop: 12/03/16 01:31 Docusate Sodium (Colace) 250 mg PO BID [facility] Stop: 12/03/16 08:59 Last Admin: 10/09/16 16:43 Dose: Not Given Lorazepam (Ativan) 0.5 mg PO Q4HR PRN; Protocol PRN Reason: Anxiety Stop: 11/03/16 01:09 Magnesium Hydroxide (Milk Of Magnesia) 30 ml PO HS PRN PRN Reason: Constipation Multivitamins/Vitamin C (Theragran) 1 tab PO DAILY [facility] Stop: 12/03/16 08:59 Last Admin: 10/09/16 09:18 Dose: 1 tab Quetiapine Fumarate (Seroquel) 12.5 mg PO HS DOMINGO PRN Reason: Protocol Stop: 12/03/16 20:59 Last Admin: 10/09/16 21:12 Dose: 12.5 mg Trazodone HCl (Desyrel) 50 mg PO HS DOMINGO PRN Reason: Protocol Stop: 12/03/16 20:59 Last Admin: 10/09/16 21:14 Dose: 50 mg Zolpidem Tartrate (Ambien) 5 mg PO HS PRN PRN Reason: Insomnia Stop: 12/03/16 01:09 General: Alert, No acute distress HEENT: Atraumatic, PERRLA, EOMI Neck: Supple Cardiovascular: Regular rate, Normal S1, Normal S2 Lungs: Clear to auscultation Abdomen: Bowel sounds Neurological: Normal gait, Normal speech Assessment/Plan - Problem List Patient Problems: All Active Problems Anxiety (Acute) F41.9 Coronary artery disease (Acute) I25.10 Hypokalemia (Acute) E87.6 Hyponatremia (Acute) E87.1 Major depression (Acute) F32.9 Peripheral vascular disease (Acute) I73.9 Psychosis (Acute) F29 Radiculopathy (Acute) M54.10 - Assessment Assessment: Psychosis Major depression disorder Coronary artery disease peripheral vascular disease anxiety radiculopathy leg pain hyponatremia hypokalemia - Plan Plan: Psychosis Major depression disorder Coronary artery disease peripheral vascular disease anxiety radiculopathy leg pain hyponatremia -- improving hypokalemia -- now resolved. Nutritional Asmnt/Malnutr-PDOC - Dietary Evaluation Malnutrition Findings (Please click <Entered> for more info): Nutritional Asmnt/Malnutrition Start: 10/07/16 12: 20 Text: Status: Complete Freq: Document 10/07/16 12:20 GSUN (Rec: 10/07/16 12:36 GSUN [email or web address]) Nutritional Asmnt/Malnutrition Patient General Information Nutritional Screening Moderate Risk Screening Diagnosis Major depressive disorder recurrent and severe, psychosis Pertinent Medical Hx/Surgical Hx CAD, anxiety, depression, psychosis, schizophrenia Subjective Information 76 year old male from SNF. RN expressed concern regarding pt 's nutrition status to RD on pt's adm day, RD attempted to visit pt 10/05 and 10/06, both days pt refused to speak to RD . Spoke to pt today, pt was alert, appeared very guarded. Pt refused meals on adm, avg 25% of meals yesterday. Pt suspected water pitcher at bedside was polluted, RD provided new pitcher, pt drank most of it. Pt reported drinking Boost and juice for breakfast, RD encouraged trying solid foods balanced diet for lunch, pt agreeable to plan. Pt stated he "kind of " feels hungry. Pt with few teeth missing, denied difficulties. Pt unsure of UBW , appeared thin, guarded and under blankets, unable to complete physical assessment due to this. CBW 121.2lb via bedscale includes personal blanket. Current Diet Order/ Nutrition Support Regular, Boost Daily Pertinent Medications Tums, Colace, MOM, Theragran, Seroquel Pertinent Labs 10/03: triglycerides 164H, cholesterol 222H, glucose 128H Nutritional Hx/Data Height 1.7 m Height (Calculated Centimeters) 170.2 Current Weight (lbs) 54.975 kg Weight (Calculated Kilograms) 55.0 Weight (Calculated Grams) 62058.4 [place] Body Weight 148 Weight Status Approriate GI Symptoms Food Allergies No Skin Integrity/Comment: Parth 18. Skin intact. Current %PO Negligible < 25% Estimated Nutritional Goals Calories/Kcals/Kg IBW 148lb/67.3kg Kcals Calculated 1683-2019kcal (25-30kcla/kg) Protein Calculated 67g (1g/kg) Fluid: ml 1683-2019ml (1ml/kcal) Nutritional Problem 1. Problem Problem Inadequate oral food beverage intake related to Etiology likely cognition aeb Signs/Symptoms: pt thinks water pitcher is polluted, refusing meals on adm Intervention/Recommendation Comments 1. Continue with current diet order. Avg PO intake is inadequate but appears to be improving. Nursing staff to encourage meals and ensure food safety, pt appeared suspicious regarding food. 2. Monitor weight, BMI 19. Expected Outcomes/Goals Expected Outcomes/Goals 1. PO intake to meet at least 75% of estimated nutritional needs.
[2016-10-10] MEDS: Aspirin 81mg Chewable Tab PO SCH (09:14)
[2016-10-10] MEDS: Multivitamin Tab PO SCH (09:14)
--- NOTE | 2016-10-10 21:19 | Progress Notes ---
DATE: 10/10/2016 PSYCHIATRIC PROGRESS NOTE TIME PATIENT SEEN: 9:15 a.m. SUBJECTIVE: Staff was spoken to. The patient is interviewed. Mood is noted to be irritable. Affect is constricted. Coping skills are noted to be still poor. The patient is refusing to comply with the medication. The patient is currently on Seroquel, which is going to be increased to 25 mg and the Remeron 7.5 mg is going to be placed. ASSESSMENT: The patient is still depressed, not ready to be discharged. PLAN: To continue patient with the supportive therapy. I encouraged the patient to verbalize the concerns rather than to act out. JOB# [id number]
[2016-10-11] MEDS: Multivitamin Tab PO SCH (09:45)
[2016-10-11] MEDS: Aspirin 81mg Chewable Tab PO SCH (09:45)
--- NOTE | 2016-10-11 09:45 | General Progress Note ---
Subjective - Review of Systems Service Date: 10/11/16 Subjective: Patient afebrile, awake, alert. no new complaints. Objective - Results Result Diagrams: 10/03/16 23:45 10/08/16 09:55 Recent Labs: Laboratory Last Values WBC 7.1 Th/cmm (4.8-10.8) 10/03/16 23:45 RBC 4.69 Mil/cmm (3.80-5.80) 10/03/16 23:45 Hgb 14.4 gm/dL (12.6-17.4) 10/03/16 23:45 Hct 43.4 % (39.0-49.0) 10/03/16 23:45 MCV 92.7 fl (80-99) 10/03/16 23:45 MCH 30.7 pg (27.0-31.0) 10/03/16 23:45 MCHC Differential 33.2 pg (28.0-36.0) 10/03/16 23:45 RDW 12.8 % (11.5-20.0) 10/03/16 23:45 Plt Count 362 Th/cmm (150-400) 10/03/16 23:45 MPV 7.5 fl 10/03/16 23:45 Neutrophils % 64.4 % (40.0-80.0) 10/03/16 23:45 Lymphocytes % 26.1 % (20.0-50.0) 10/03/16 23:45 Monocytes % 7.3 % (2.0-10.0) 10/03/16 23:45 Eosinophils % 1.8 % (0.0-5.0) 10/03/16 23:45 Basophils % 0.4 % (0.0-2.0) 10/03/16 23:45 PT 9.8 SECONDS (9.5-11.5) 10/03/16 23:45 INR 0.94 (0.5-1.4) 10/03/16 23:45 PTT (Actin FS) 24.9 SECONDS (26.0-38.0) L 10/03/16 23:45 Sodium 133 mEq/L (136-145) L 10/08/16 09:55 Potassium 3.7 mEq/L (3.5-5.1) 10/08/16 09:55 Chloride 104 mEq/L (98-107) 10/08/16 09:55 Carbon Dioxide 25.7 mEq/L (21.0-31.0) 10/08/16 09:55 Anion Gap 7.0 (7.0-16.0) 10/08/16 09:55 BUN 18 mg/dL (7-25) 10/08/16 09:55 Creatinine 0.7 mg/dL (0.7-1.3) 10/08/16 09:55 Est GFR ( Amer) TNP 10/08/16 09:55 Est GFR (Non-Af Amer) TNP 10/08/16 09:55 BUN/Creatinine Ratio 25.7 10/08/16 09:55 Glucose 151 mg/dL (70-105) H 10/08/16 09:55 Calcium 8.1 mg/dL (8.6-10.3) L 10/08/16 09:55 Total Bilirubin 0.3 mg/dL (0.3-1.0) 10/03/16 23:45 AST 39 U/L (13-39) 10/03/16 23:45 ALT 67 U/L (7-52) H 10/03/16 23:45 Alkaline Phosphatase 73 U/L (34-104) 10/03/16 23:45 Troponin I 0.02 ng/mL (0.01-0.05) 10/03/16 23:45 Total Protein 5.8 gm/dL (6.0-8.3) L 10/03/16 23:45 Albumin 2.8 gm/dL (4.2-5.5) L 10/03/16 23:45 Globulin 3.0 gm/dL 10/03/16 23:45 Albumin/Globulin Ratio 0.9 (1.0-1.8) L 10/03/16 23:45 Triglycerides 164 mg/dL (<150) H 10/03/16 23:45 Cholesterol 222 mg/dL (<200) H 10/03/16 23:45 LDL Cholesterol Direct 140 mg/dL (75-193) 10/03/16 23:45 HDL Cholesterol 58 mg/dL (23-92) 10/03/16 23:45 TSH 0.89 uIU/ml (0.34-5.60) 10/03/16 23:45 RPR NONREACTIVE (NONREACTIVE) 10/03/16 23:45 - Physical Exam Vitals and I&O: Vital Signs Temp 98.2 F 10/10/16 20:42 Pulse 104 10/10/16 20:42 Resp 20 10/10/16 20:42 BP 107/72 10/10/16 20:42 Pulse Ox 96 10/10/16 20:42 Intake & Output 10/10/16 10/11/16 10/11/16 18:59 06:59 18:59 Intake Total 900 60 Balance 900 60 Intake: Oral 900 60 Other: # Voids 3 1 # Bowel Movements 1 0 Active Medications: Current Medications Acetaminophen (Tylenol) 650 mg PO Q4HR PRN PRN Reason: Mild Pain / Temp above 100 Stop: 12/03/16 01:09 Acetaminophen/Hydrocodone Bitart ([place] 5mg/325mg) 1 tab PO Q4H PRN PRN Reason: Pain (Moderate) Stop: 12/03/16 01:35 Al Hydrox/Mg Hydrox/Simethicone (Maalox) 30 ml PO Q4HR PRN PRN Reason: GI DISTRESS Stop: 12/03/16 01:09 Aspirin (Aspirin Chewable) 81 mg PO DAILY [facility] Stop: 12/03/16 08:59 Last Admin: 10/10/16 09:14 Dose: 81 mg Calcium Carbonate (Tums) 500 mg PO Q4HR PRN PRN Reason: GI upset Stop: 12/03/16 03:59 Diphenhydramine HCl (Benadryl) 25 mg PO Q4HR PRN PRN Reason: Itching Stop: 12/03/16 01:31 Docusate Sodium (Colace) 250 mg PO BID [facility] Stop: 12/03/16 08:59 Last Admin: 10/10/16 17:40 Dose: 250 mg Lorazepam (Ativan) 0.5 mg PO Q4HR PRN; Protocol PRN Reason: Anxiety Stop: 11/03/16 01:09 Magnesium Hydroxide (Milk Of Magnesia) 30 ml PO HS PRN PRN Reason: Constipation Mirtazapine (Remeron) 7.5 mg PO HS DOMINGO PRN Reason: Protocol Stop: 12/09/16 20:59 Last Admin: 10/10/16 21:53 Dose: 7.5 mg Multivitamins/Vitamin C (Theragran) 1 tab PO DAILY [facility] Stop: 12/03/16 08:59 Last Admin: 10/10/16 09:14 Dose: 1 tab Quetiapine Fumarate (Seroquel) 25 mg PO HS DOMINGO PRN Reason: Protocol Stop: 12/03/16 20:59 Last Admin: 10/10/16 21:52 Dose: 25 mg Trazodone HCl (Desyrel) 50 mg PO HS DOMINGO PRN Reason: Protocol Stop: 12/03/16 20:59 Last Admin: 10/10/16 21:55 Dose: 50 mg Zolpidem Tartrate (Ambien) 5 mg PO HS PRN PRN Reason: Insomnia Stop: 12/03/16 01:09 General: Alert, No acute distress HEENT: Atraumatic, PERRLA, EOMI Neck: Supple Cardiovascular: Regular rate, Normal S1, Normal S2 Lungs: Clear to auscultation Abdomen: Bowel sounds Neurological: Normal gait, Normal speech Assessment/Plan - Problem List Patient Problems: All Active Problems Anxiety (Acute) F41.9 Coronary artery disease (Acute) I25.10 Hypokalemia (Acute) E87.6 Hyponatremia (Acute) E87.1 Major depression (Acute) F32.9 Peripheral vascular disease (Acute) I73.9 Psychosis (Acute) F29 Radiculopathy (Acute) M54.10 - Assessment Assessment: Psychosis Major depression disorder Coronary artery disease peripheral vascular disease anxiety radiculopathy leg pain hyponatremia hypokalemia - Plan Plan: Psychosis -- will continue current treatment Major depression disorder Coronary artery disease peripheral vascular disease anxiety radiculopathy leg pain hyponatremia -- improving hypokalemia -- now resolved. Nutritional Asmnt/Malnutr-PDOC - Dietary Evaluation Malnutrition Findings (Please click <Entered> for more info): Nutritional Asmnt/Malnutrition Start: 10/07/16 12: 20 Text: Status: Complete Freq: Document 10/07/16 12:20 GSUN (Rec: 10/07/16 12:36 GSUN [email or web address]) Nutritional Asmnt/Malnutrition Patient General Information Nutritional Screening Moderate Risk Screening Diagnosis Major depressive disorder recurrent and severe, psychosis Pertinent Medical Hx/Surgical Hx CAD, anxiety, depression, psychosis, schizophrenia Subjective Information 76 year old male from SNF. RN expressed concern regarding pt 's nutrition status to RD on pt's adm day, RD attempted to visit pt 10/05 and 10/06, both days pt refused to speak to RD . Spoke to pt today, pt was alert, appeared very guarded. Pt refused meals on adm, avg 25% of meals yesterday. Pt suspected water pitcher at bedside was polluted, RD provided new pitcher, pt drank most of it. Pt reported drinking Boost and juice for breakfast, RD encouraged trying solid foods balanced diet for lunch, pt agreeable to plan. Pt stated he "kind of " feels hungry. Pt with few teeth missing, denied difficulties. Pt unsure of UBW , appeared thin, guarded and under blankets, unable to complete physical assessment due to this. CBW 121.2lb via bedscale includes personal blanket. Current Diet Order/ Nutrition Support Regular, Boost Daily Pertinent Medications Tums, Colace, MOM, Theragran, Seroquel Pertinent Labs 10/03: triglycerides 164H, cholesterol 222H, glucose 128H Nutritional Hx/Data Height 1.7 m Height (Calculated Centimeters) 170.2 Current Weight (lbs) 54.975 kg Weight (Calculated Kilograms) 55.0 Weight (Calculated Grams) 34778.4 [place] Body Weight 148 Weight Status Approriate GI Symptoms Food Allergies No Skin Integrity/Comment: Parth 18. Skin intact. Current %PO Negligible < 25% Estimated Nutritional Goals Calories/Kcals/Kg IBW 148lb/67.3kg Kcals Calculated 1683-2019kcal (25-30kcla/kg) Protein Calculated 67g (1g/kg) Fluid: ml 1683-2019ml (1ml/kcal) Nutritional Problem 1. Problem Problem Inadequate oral food beverage intake related to Etiology likely cognition aeb Signs/Symptoms: pt thinks water pitcher is polluted, refusing meals on adm Intervention/Recommendation Comments 1. Continue with current diet order. Avg PO intake is inadequate but appears to be improving. Nursing staff to encourage meals and ensure food safety, pt appeared suspicious regarding food. 2. Monitor weight, BMI 19. Expected Outcomes/Goals Expected Outcomes/Goals 1. PO intake to meet at least 75% of estimated nutritional needs.
--- NOTE | 2016-10-12 | Progress Notes ---
DATE: 10/11/2016 PSYCHIATRIC PROGRESS NOTE TIME PATIENT SEEN: 4:45 p.m. SUBJECTIVE: Staff was spoken to. The patient is interviewed. Mood is noted to be still depressed. Affect is constricted. The patient's insight and judgment are noted to be still impaired. The patient has started to take the medication at this time. No side effects to the medications are noted. The patient's coping skills are noted to be very poor. The patient has been taking only the and has been refusing to comply with other dietary requirements as prescribed. The patient is currently on Remeron 7.5 mg. It is going to be increased to 15 mg, and the patient is going to be continued on the Seroquel 25 mg at bedtime and the patient is going to be encouraged to participate in the groups and verbalize the concerns. Please note that the patient is not ready to be discharged at this time. JOB# [id number]
--- NOTE | 2016-10-12 08:29 | General Progress Note ---
Subjective - Review of Systems Service Date: 10/12/16 Subjective: Patient afebrile, awake, alert. no new complaints. Objective - Results Result Diagrams: 10/03/16 23:45 10/08/16 09:55 Recent Labs: Laboratory Last Values WBC 7.1 Th/cmm (4.8-10.8) 10/03/16 23:45 RBC 4.69 Mil/cmm (3.80-5.80) 10/03/16 23:45 Hgb 14.4 gm/dL (12.6-17.4) 10/03/16 23:45 Hct 43.4 % (39.0-49.0) 10/03/16 23:45 MCV 92.7 fl (80-99) 10/03/16 23:45 MCH 30.7 pg (27.0-31.0) 10/03/16 23:45 MCHC Differential 33.2 pg (28.0-36.0) 10/03/16 23:45 RDW 12.8 % (11.5-20.0) 10/03/16 23:45 Plt Count 362 Th/cmm (150-400) 10/03/16 23:45 MPV 7.5 fl 10/03/16 23:45 Neutrophils % 64.4 % (40.0-80.0) 10/03/16 23:45 Lymphocytes % 26.1 % (20.0-50.0) 10/03/16 23:45 Monocytes % 7.3 % (2.0-10.0) 10/03/16 23:45 Eosinophils % 1.8 % (0.0-5.0) 10/03/16 23:45 Basophils % 0.4 % (0.0-2.0) 10/03/16 23:45 PT 9.8 SECONDS (9.5-11.5) 10/03/16 23:45 INR 0.94 (0.5-1.4) 10/03/16 23:45 PTT (Actin FS) 24.9 SECONDS (26.0-38.0) L 10/03/16 23:45 Sodium 133 mEq/L (136-145) L 10/08/16 09:55 Potassium 3.7 mEq/L (3.5-5.1) 10/08/16 09:55 Chloride 104 mEq/L (98-107) 10/08/16 09:55 Carbon Dioxide 25.7 mEq/L (21.0-31.0) 10/08/16 09:55 Anion Gap 7.0 (7.0-16.0) 10/08/16 09:55 BUN 18 mg/dL (7-25) 10/08/16 09:55 Creatinine 0.7 mg/dL (0.7-1.3) 10/08/16 09:55 Est GFR ( Amer) TNP 10/08/16 09:55 Est GFR (Non-Af Amer) TNP 10/08/16 09:55 BUN/Creatinine Ratio 25.7 10/08/16 09:55 Glucose 151 mg/dL (70-105) H 10/08/16 09:55 Calcium 8.1 mg/dL (8.6-10.3) L 10/08/16 09:55 Total Bilirubin 0.3 mg/dL (0.3-1.0) 10/03/16 23:45 AST 39 U/L (13-39) 10/03/16 23:45 ALT 67 U/L (7-52) H 10/03/16 23:45 Alkaline Phosphatase 73 U/L (34-104) 10/03/16 23:45 Troponin I 0.02 ng/mL (0.01-0.05) 10/03/16 23:45 Total Protein 5.8 gm/dL (6.0-8.3) L 10/03/16 23:45 Albumin 2.8 gm/dL (4.2-5.5) L 10/03/16 23:45 Globulin 3.0 gm/dL 10/03/16 23:45 Albumin/Globulin Ratio 0.9 (1.0-1.8) L 10/03/16 23:45 Triglycerides 164 mg/dL (<150) H 10/03/16 23:45 Cholesterol 222 mg/dL (<200) H 10/03/16 23:45 LDL Cholesterol Direct 140 mg/dL (75-193) 10/03/16 23:45 HDL Cholesterol 58 mg/dL (23-92) 10/03/16 23:45 TSH 0.89 uIU/ml (0.34-5.60) 10/03/16 23:45 RPR NONREACTIVE (NONREACTIVE) 10/03/16 23:45 - Physical Exam Vitals and I&O: Vital Signs Temp 98.0 F 10/12/16 07:11 Pulse 95 10/12/16 07:11 Resp 18 10/12/16 07:11 BP 122/82 10/12/16 07:11 Pulse Ox 96 10/12/16 07:11 Intake & Output 10/11/16 10/12/16 10/12/16 18:59 06:59 18:59 Intake Total 800 Balance 800 Intake: Oral 800 Other: # Voids 3 # Bowel Movements 0 Active Medications: Current Medications Acetaminophen (Tylenol) 650 mg PO Q4HR PRN PRN Reason: Mild Pain / Temp above 100 Stop: 12/03/16 01:09 Acetaminophen/Hydrocodone Bitart ([place] 5mg/325mg) 1 tab PO Q4H PRN PRN Reason: Pain (Moderate) Stop: 12/03/16 01:35 Al Hydrox/Mg Hydrox/Simethicone (Maalox) 30 ml PO Q4HR PRN PRN Reason: GI DISTRESS Stop: 12/03/16 01:09 Aspirin (Aspirin Chewable) 81 mg PO DAILY [facility] Stop: 12/03/16 08:59 Last Admin: 10/11/16 09:45 Dose: 81 mg Calcium Carbonate (Tums) 500 mg PO Q4HR PRN PRN Reason: GI upset Stop: 12/03/16 03:59 Diphenhydramine HCl (Benadryl) 25 mg PO Q4HR PRN PRN Reason: Itching Stop: 12/03/16 01:31 Docusate Sodium (Colace) 250 mg PO BID [facility] Stop: 12/03/16 08:59 Last Admin: 10/11/16 16:51 Dose: 250 mg Lorazepam (Ativan) 0.5 mg PO Q4HR PRN; Protocol PRN Reason: Anxiety Stop: 11/03/16 01:09 Magnesium Hydroxide (Milk Of Magnesia) 30 ml PO HS PRN PRN Reason: Constipation Mirtazapine (Remeron) 15 mg PO HS [facility]INGO PRN Reason: Protocol Stop: 12/09/16 20:59 Last Admin: 10/11/16 21:20 Dose: 15 mg Multivitamins/Vitamin C (Theragran) 1 tab PO DAILY [facility] Stop: 12/03/16 08:59 Last Admin: 10/11/16 09:45 Dose: 1 tab Quetiapine Fumarate (Seroquel) 25 mg PO HS [facility]INGO PRN Reason: Protocol Stop: 12/03/16 20:59 Last Admin: 10/11/16 21:20 Dose: 25 mg Trazodone HCl (Desyrel) 50 mg PO HS [facility]INGO PRN Reason: Protocol Stop: 12/03/16 20:59 Last Admin: 10/11/16 21:20 Dose: 50 mg Zolpidem Tartrate (Ambien) 5 mg PO HS PRN PRN Reason: Insomnia Stop: 12/03/16 01:09 General: Alert, No acute distress HEENT: Atraumatic, PERRLA, EOMI Neck: Supple Cardiovascular: Regular rate, Normal S1, Normal S2 Lungs: Clear to auscultation Abdomen: Bowel sounds Neurological: Normal gait, Normal speech Assessment/Plan - Problem List Patient Problems: All Active Problems Anxiety (Acute) F41.9 Coronary artery disease (Acute) I25.10 Hypokalemia (Acute) E87.6 Hyponatremia (Acute) E87.1 Major depression (Acute) F32.9 Peripheral vascular disease (Acute) I73.9 Psychosis (Acute) F29 Radiculopathy (Acute) M54.10 - Assessment Assessment: Psychosis Major depression disorder Coronary artery disease peripheral vascular disease anxiety radiculopathy leg pain hyponatremia hypokalemia - Plan Plan: Psychosis -- will continue current treatment Major depression disorder Coronary artery disease peripheral vascular disease anxiety radiculopathy leg pain hyponatremia -- improving hypokalemia -- now resolved. Nutritional Asmnt/Malnutr-PDOC - Dietary Evaluation Malnutrition Findings (Please click <Entered> for more info): Nutritional Asmnt/Malnutrition Start: 10/07/16 12: 20 Text: Status: Complete Freq: Document 10/07/16 12:20 GSUN (Rec: 10/07/16 12:36 [email or web address] [email or web address]) Nutritional Asmnt/Malnutrition Patient General Information Nutritional Screening Moderate Risk Screening Diagnosis Major depressive disorder recurrent and severe, psychosis Pertinent Medical Hx/Surgical Hx CAD, anxiety, depression, psychosis, schizophrenia Subjective Information 76 year old male from SNF. RN expressed concern regarding pt 's nutrition status to RD on pt's adm day, RD attempted to visit pt 10/05 and 10/06, both days pt refused to speak to RD . Spoke to pt today, pt was alert, appeared very guarded. Pt refused meals on adm, avg 25% of meals yesterday. Pt suspected water pitcher at bedside was polluted, RD provided new pitcher, pt drank most of it. Pt reported drinking Boost and juice for breakfast, RD encouraged trying solid foods balanced diet for lunch, pt agreeable to plan. Pt stated he "kind of " feels hungry. Pt with few teeth missing, denied difficulties. Pt unsure of UBW , appeared thin, guarded and under blankets, unable to complete physical assessment due to this. CBW 121.2lb via bedscale includes personal blanket. Current Diet Order/ Nutrition Support Regular, Boost Daily Pertinent Medications Tums, Colace, MOM, Theragran, Seroquel Pertinent Labs 10/03: triglycerides 164H, cholesterol 222H, glucose 128H Nutritional Hx/Data Height 1.7 m Height (Calculated Centimeters) 170.2 Current Weight (lbs) 54.975 kg Weight (Calculated Kilograms) 55.0 Weight (Calculated Grams) 50389.4 [place] Body Weight 148 Weight Status Approriate GI Symptoms Food Allergies No Skin Integrity/Comment: Parth 18. Skin intact. Current %PO Negligible < 25% Estimated Nutritional Goals Calories/Kcals/Kg IBW 148lb/67.3kg Kcals Calculated 1683-2019kcal (25-30kcla/kg) Protein Calculated 67g (1g/kg) Fluid: ml 1683-2019ml (1ml/kcal) Nutritional Problem 1. Problem Problem Inadequate oral food beverage intake related to Etiology likely cognition aeb Signs/Symptoms: pt thinks water pitcher is polluted, refusing meals on adm Intervention/Recommendation Comments 1. Continue with current diet order. Avg PO intake is inadequate but appears to be improving. Nursing staff to encourage meals and ensure food safety, pt appeared suspicious regarding food. 2. Monitor weight, BMI 19. Expected Outcomes/Goals Expected Outcomes/Goals 1. PO intake to meet at least 75% of estimated nutritional needs.
[2016-10-12] MEDS: Multivitamin Tab PO SCH (09:12)
[2016-10-12] MEDS: Aspirin 81mg Chewable Tab PO SCH (09:12)
--- NOTE | 2016-10-12 20:56 | Progress Notes ---
DATE: 10/12/2016 PSYCHIATRIC PROGRESS NOTE TIME PATIENT SEEN: 1:00 p.m. SUBJECTIVE: Staff was spoken to. The patient is interviewed. Mood is noted to be irritable. Affect is constricted. The patient's coping skills are noted to be still poor. Sleep and appetite are also noted to be poor. The patient has been having difficult time to cope with the stress. The patient is isolative and withdrawn. The patient, however, has been able to tolerate the mirtazapine and the Seroquel. ASSESSMENT: The patient is still depressed and psychotic. PLAN: To continue the patient with supportive therapy and followup. JOB# [id number]
--- NOTE | 2016-10-13 08:10 | General Progress Note ---
Subjective - Review of Systems Service Date: 10/13/16 Subjective: Patient afebrile, awake, alert. no new complaints. Objective - Results Result Diagrams: 10/03/16 23:45 10/08/16 09:55 Recent Labs: Laboratory Last Values WBC 7.1 Th/cmm (4.8-10.8) 10/03/16 23:45 RBC 4.69 Mil/cmm (3.80-5.80) 10/03/16 23:45 Hgb 14.4 gm/dL (12.6-17.4) 10/03/16 23:45 Hct 43.4 % (39.0-49.0) 10/03/16 23:45 MCV 92.7 fl (80-99) 10/03/16 23:45 MCH 30.7 pg (27.0-31.0) 10/03/16 23:45 MCHC Differential 33.2 pg (28.0-36.0) 10/03/16 23:45 RDW 12.8 % (11.5-20.0) 10/03/16 23:45 Plt Count 362 Th/cmm (150-400) 10/03/16 23:45 MPV 7.5 fl 10/03/16 23:45 Neutrophils % 64.4 % (40.0-80.0) 10/03/16 23:45 Lymphocytes % 26.1 % (20.0-50.0) 10/03/16 23:45 Monocytes % 7.3 % (2.0-10.0) 10/03/16 23:45 Eosinophils % 1.8 % (0.0-5.0) 10/03/16 23:45 Basophils % 0.4 % (0.0-2.0) 10/03/16 23:45 PT 9.8 SECONDS (9.5-11.5) 10/03/16 23:45 INR 0.94 (0.5-1.4) 10/03/16 23:45 PTT (Actin FS) 24.9 SECONDS (26.0-38.0) L 10/03/16 23:45 Sodium 133 mEq/L (136-145) L 10/08/16 09:55 Potassium 3.7 mEq/L (3.5-5.1) 10/08/16 09:55 Chloride 104 mEq/L (98-107) 10/08/16 09:55 Carbon Dioxide 25.7 mEq/L (21.0-31.0) 10/08/16 09:55 Anion Gap 7.0 (7.0-16.0) 10/08/16 09:55 BUN 18 mg/dL (7-25) 10/08/16 09:55 Creatinine 0.7 mg/dL (0.7-1.3) 10/08/16 09:55 Est GFR ( Amer) TNP 10/08/16 09:55 Est GFR (Non-Af Amer) TNP 10/08/16 09:55 BUN/Creatinine Ratio 25.7 10/08/16 09:55 Glucose 151 mg/dL (70-105) H 10/08/16 09:55 Calcium 8.1 mg/dL (8.6-10.3) L 10/08/16 09:55 Total Bilirubin 0.3 mg/dL (0.3-1.0) 10/03/16 23:45 AST 39 U/L (13-39) 10/03/16 23:45 ALT 67 U/L (7-52) H 10/03/16 23:45 Alkaline Phosphatase 73 U/L (34-104) 10/03/16 23:45 Troponin I 0.02 ng/mL (0.01-0.05) 10/03/16 23:45 Total Protein 5.8 gm/dL (6.0-8.3) L 10/03/16 23:45 Albumin 2.8 gm/dL (4.2-5.5) L 10/03/16 23:45 Globulin 3.0 gm/dL 10/03/16 23:45 Albumin/Globulin Ratio 0.9 (1.0-1.8) L 10/03/16 23:45 Triglycerides 164 mg/dL (<150) H 10/03/16 23:45 Cholesterol 222 mg/dL (<200) H 10/03/16 23:45 LDL Cholesterol Direct 140 mg/dL (75-193) 10/03/16 23:45 HDL Cholesterol 58 mg/dL (23-92) 10/03/16 23:45 TSH 0.89 uIU/ml (0.34-5.60) 10/03/16 23:45 RPR NONREACTIVE (NONREACTIVE) 10/03/16 23:45 - Physical Exam Vitals and I&O: Vital Signs Temp 97.4 F 10/13/16 06:36 Pulse 86 10/13/16 06:36 Resp 20 10/13/16 06:36 BP 125/77 10/13/16 06:36 Pulse Ox 97 10/13/16 06:36 Intake & Output 10/12/16 10/13/16 10/13/16 18:59 06:59 18:59 Intake Total 1200 120 Balance 1200 120 Intake: Oral 1200 120 Other: # Voids 3 # Bowel Movements 1 Active Medications: Current Medications Acetaminophen (Tylenol) 650 mg PO Q4HR PRN PRN Reason: Mild Pain / Temp above 100 Stop: 12/03/16 01:09 Acetaminophen/Hydrocodone Bitart ([place] 5mg/325mg) 1 tab PO Q4H PRN PRN Reason: Pain (Moderate) Stop: 12/03/16 01:35 Al Hydrox/Mg Hydrox/Simethicone (Maalox) 30 ml PO Q4HR PRN PRN Reason: GI DISTRESS Stop: 12/03/16 01:09 Aspirin (Aspirin Chewable) 81 mg PO DAILY [facility] Stop: 12/03/16 08:59 Last Admin: 10/12/16 09:12 Dose: 81 mg Calcium Carbonate (Tums) 500 mg PO Q4HR PRN PRN Reason: GI upset Stop: 12/03/16 03:59 Diphenhydramine HCl (Benadryl) 25 mg PO Q4HR PRN PRN Reason: Itching Stop: 12/03/16 01:31 Docusate Sodium (Colace) 250 mg PO BID [facility] Stop: 12/03/16 08:59 Last Admin: 10/12/16 17:01 Dose: Not Given Lorazepam (Ativan) 0.5 mg PO Q4HR PRN; Protocol PRN Reason: Anxiety Stop: 11/03/16 01:09 Magnesium Hydroxide (Milk Of Magnesia) 30 ml PO HS PRN PRN Reason: Constipation Mirtazapine (Remeron) 15 mg PO HS DOMINGO PRN Reason: Protocol Stop: 12/09/16 20:59 Last Admin: 10/12/16 20:18 Dose: 15 mg Multivitamins/Vitamin C (Theragran) 1 tab PO DAILY [facility] Stop: 12/03/16 08:59 Last Admin: 10/12/16 09:12 Dose: 1 tab Quetiapine Fumarate (Seroquel) 25 mg PO HS [facility]INGO PRN Reason: Protocol Stop: 12/03/16 20:59 Last Admin: 10/12/16 20:18 Dose: 25 mg Trazodone HCl (Desyrel) 50 mg PO HS [facility]O PRN Reason: Protocol Stop: 12/03/16 20:59 Last Admin: 10/12/16 20:18 Dose: 50 mg Zolpidem Tartrate (Ambien) 5 mg PO HS PRN PRN Reason: Insomnia Stop: 12/03/16 01:09 General: Alert, No acute distress HEENT: Atraumatic, PERRLA, EOMI Neck: Supple Cardiovascular: Regular rate, Normal S1, Normal S2 Lungs: Clear to auscultation Abdomen: Bowel sounds Neurological: Normal gait, Normal speech Assessment/Plan - Problem List Patient Problems: All Active Problems Anxiety (Acute) F41.9 Coronary artery disease (Acute) I25.10 Hypokalemia (Acute) E87.6 Hyponatremia (Acute) E87.1 Major depression (Acute) F32.9 Peripheral vascular disease (Acute) I73.9 Psychosis (Acute) F29 Radiculopathy (Acute) M54.10 - Assessment Assessment: Psychosis Major depression disorder Coronary artery disease peripheral vascular disease anxiety radiculopathy leg pain hyponatremia hypokalemia - Plan Plan: Psychosis -- will continue current treatment Major depression disorder Coronary artery disease peripheral vascular disease anxiety radiculopathy leg pain hyponatremia -- improving hypokalemia -- now resolved. Nutritional Asmnt/Malnutr-PDOC - Dietary Evaluation Malnutrition Findings (Please click <Entered> for more info): Nutritional Asmnt/Malnutrition Start: 10/07/16 12: 20 Text: Status: Complete Freq: Document 10/07/16 12:20 GSUN (Rec: 10/07/16 12:36 [email or web address]) Nutritional Asmnt/Malnutrition Patient General Information Nutritional Screening Moderate Risk Screening Diagnosis Major depressive disorder recurrent and severe, psychosis Pertinent Medical Hx/Surgical Hx CAD, anxiety, depression, psychosis, schizophrenia Subjective Information 76 year old male from SNF. RN expressed concern regarding pt 's nutrition status to RD on pt's adm day, RD attempted to visit pt 10/05 and 10/06, both days pt refused to speak to RD . Spoke to pt today, pt was alert, appeared very guarded. Pt refused meals on adm, avg 25% of meals yesterday. Pt suspected water pitcher at bedside was polluted, RD provided new pitcher, pt drank most of it. Pt reported drinking Boost and juice for breakfast, RD encouraged trying solid foods balanced diet for lunch, pt agreeable to plan. Pt stated he "kind of " feels hungry. Pt with few teeth missing, denied difficulties. Pt unsure of UBW , appeared thin, guarded and under blankets, unable to complete physical assessment due to this. CBW 121.2lb via bedscale includes personal blanket. Current Diet Order/ Nutrition Support Regular, Boost Daily Pertinent Medications Tums, Colace, MOM, Theragran, Seroquel Pertinent Labs 10/03: triglycerides 164H, cholesterol 222H, glucose 128H Nutritional Hx/Data Height 1.7 m Height (Calculated Centimeters) 170.2 Current Weight (lbs) 54.975 kg Weight (Calculated Kilograms) 55.0 Weight (Calculated Grams) 23737.4 [place] Body Weight 148 Weight Status Approriate GI Symptoms Food Allergies No Skin Integrity/Comment: Parth 18. Skin intact. Current %PO Negligible < 25% Estimated Nutritional Goals Calories/Kcals/Kg IBW 148lb/67.3kg Kcals Calculated 1683-2019kcal (25-30kcla/kg) Protein Calculated 67g (1g/kg) Fluid: ml 1683-2019ml (1ml/kcal) Nutritional Problem 1. Problem Problem Inadequate oral food beverage intake related to Etiology likely cognition aeb Signs/Symptoms: pt thinks water pitcher is polluted, refusing meals on adm Intervention/Recommendation Comments 1. Continue with current diet order. Avg PO intake is inadequate but appears to be improving. Nursing staff to encourage meals and ensure food safety, pt appeared suspicious regarding food. 2. Monitor weight, BMI 19. Expected Outcomes/Goals Expected Outcomes/Goals 1. PO intake to meet at least 75% of estimated nutritional needs.
[2016-10-13] MEDS: Multivitamin Tab PO SCH (09:13)
[2016-10-13] MEDS: Aspirin 81mg Chewable Tab PO SCH (09:15)
--- NOTE | 2016-10-14 00:14 | Progress Notes ---
DATE: 10/13/2016 PSYCHIATRIC PROGRESS NOTE TIME PATIENT SEEN: 5:30 p.m. SUBJECTIVE: Staff was spoken to. The patient is interviewed. Mood is noted to be anxious. The patient is still isolative and withdrawn. Mood swings are coming under control. The patient, however, continues to be depressed. The patient is currently on 15 mg of the mirtazapine, Seroquel 25 mg at bedtime, and has been able to tolerate the medication. The patient seems to be improving to some extent compared to the previous days. The patient, however, has been isolating himself and does not want to participate in any of the groups at this time. ASSESSMENT: The patient is still depressed. PLAN: To continue the patient with the supportive therapy. I encouraged the patient to verbalize the concerns rather than to act out. JOB# [id number]
--- NOTE | 2016-10-14 08:08 | General Progress Note ---
Subjective - Review of Systems Service Date: 10/14/16 Subjective: Patient afebrile, awake, alert. no new complaints. Resting comfortably no acute distress Objective - Results Result Diagrams: 10/03/16 23:45 10/08/16 09:55 Recent Labs: Laboratory Last Values WBC 7.1 Th/cmm (4.8-10.8) 10/03/16 23:45 RBC 4.69 Mil/cmm (3.80-5.80) 10/03/16 23:45 Hgb 14.4 gm/dL (12.6-17.4) 10/03/16 23:45 Hct 43.4 % (39.0-49.0) 10/03/16 23:45 MCV 92.7 fl (80-99) 10/03/16 23:45 MCH 30.7 pg (27.0-31.0) 10/03/16 23:45 MCHC Differential 33.2 pg (28.0-36.0) 10/03/16 23:45 RDW 12.8 % (11.5-20.0) 10/03/16 23:45 Plt Count 362 Th/cmm (150-400) 10/03/16 23:45 MPV 7.5 fl 10/03/16 23:45 Neutrophils % 64.4 % (40.0-80.0) 10/03/16 23:45 Lymphocytes % 26.1 % (20.0-50.0) 10/03/16 23:45 Monocytes % 7.3 % (2.0-10.0) 10/03/16 23:45 Eosinophils % 1.8 % (0.0-5.0) 10/03/16 23:45 Basophils % 0.4 % (0.0-2.0) 10/03/16 23:45 PT 9.8 SECONDS (9.5-11.5) 10/03/16 23:45 INR 0.94 (0.5-1.4) 10/03/16 23:45 PTT (Actin FS) 24.9 SECONDS (26.0-38.0) L 10/03/16 23:45 Sodium 133 mEq/L (136-145) L 10/08/16 09:55 Potassium 3.7 mEq/L (3.5-5.1) 10/08/16 09:55 Chloride 104 mEq/L (98-107) 10/08/16 09:55 Carbon Dioxide 25.7 mEq/L (21.0-31.0) 10/08/16 09:55 Anion Gap 7.0 (7.0-16.0) 10/08/16 09:55 BUN 18 mg/dL (7-25) 10/08/16 09:55 Creatinine 0.7 mg/dL (0.7-1.3) 10/08/16 09:55 Est GFR ( Amer) TNP 10/08/16 09:55 Est GFR (Non-Af Amer) TNP 10/08/16 09:55 BUN/Creatinine Ratio 25.7 10/08/16 09:55 Glucose 151 mg/dL (70-105) H 10/08/16 09:55 Calcium 8.1 mg/dL (8.6-10.3) L 10/08/16 09:55 Total Bilirubin 0.3 mg/dL (0.3-1.0) 10/03/16 23:45 AST 39 U/L (13-39) 10/03/16 23:45 ALT 67 U/L (7-52) H 10/03/16 23:45 Alkaline Phosphatase 73 U/L (34-104) 10/03/16 23:45 Troponin I 0.02 ng/mL (0.01-0.05) 10/03/16 23:45 Total Protein 5.8 gm/dL (6.0-8.3) L 10/03/16 23:45 Albumin 2.8 gm/dL (4.2-5.5) L 10/03/16 23:45 Globulin 3.0 gm/dL 10/03/16 23:45 Albumin/Globulin Ratio 0.9 (1.0-1.8) L 10/03/16 23:45 Triglycerides 164 mg/dL (<150) H 10/03/16 23:45 Cholesterol 222 mg/dL (<200) H 10/03/16 23:45 LDL Cholesterol Direct 140 mg/dL (75-193) 10/03/16 23:45 HDL Cholesterol 58 mg/dL (23-92) 10/03/16 23:45 TSH 0.89 uIU/ml (0.34-5.60) 10/03/16 23:45 RPR NONREACTIVE (NONREACTIVE) 10/03/16 23:45 - Physical Exam Vitals and I&O: Vital Signs Temp 98.3 F 10/14/16 06:32 Pulse 80 10/14/16 06:32 Resp 20 10/14/16 06:32 BP 122/81 10/14/16 06:32 Pulse Ox 98 10/14/16 06:32 Intake & Output 10/13/16 10/14/16 10/14/16 18:59 06:59 18:59 Intake Total 800 120 Balance 800 120 Weight (lbs) 52.526 kg Intake: Oral 800 120 Other: # Voids 3 3 # Bowel Movements 0 Active Medications: Current Medications Acetaminophen (Tylenol) 650 mg PO Q4HR PRN PRN Reason: Mild Pain / Temp above 100 Stop: 12/03/16 01:09 Acetaminophen/Hydrocodone Bitart ([place] 5mg/325mg) 1 tab PO Q4H PRN PRN Reason: Pain (Moderate) Stop: 12/03/16 01:35 Al Hydrox/Mg Hydrox/Simethicone (Maalox) 30 ml PO Q4HR PRN PRN Reason: GI DISTRESS Stop: 12/03/16 01:09 Aspirin (Aspirin Chewable) 81 mg PO DAILY [facility] Stop: 12/03/16 08:59 Last Admin: 10/13/16 09:15 Dose: 81 mg Calcium Carbonate (Tums) 500 mg PO Q4HR PRN PRN Reason: GI upset Stop: 12/03/16 03:59 Diphenhydramine HCl (Benadryl) 25 mg PO Q4HR PRN PRN Reason: Itching Stop: 12/03/16 01:31 Docusate Sodium (Colace) 250 mg PO BID [facility] Stop: 12/03/16 08:59 Last Admin: 10/13/16 17:14 Dose: Not Given Lorazepam (Ativan) 0.5 mg PO Q4HR PRN; Protocol PRN Reason: Anxiety Stop: 11/03/16 01:09 Magnesium Hydroxide (Milk Of Magnesia) 30 ml PO HS PRN PRN Reason: Constipation Mirtazapine (Remeron) 15 mg PO HS DOMINGO PRN Reason: Protocol Stop: 12/09/16 20:59 Last Admin: 10/13/16 20:39 Dose: 15 mg Multivitamins/Vitamin C (Theragran) 1 tab PO DAILY [facility] Stop: 12/03/16 08:59 Last Admin: 10/13/16 09:13 Dose: 1 tab Quetiapine Fumarate (Seroquel) 25 mg PO HS [facility] PRN Reason: Protocol Stop: 12/03/16 20:59 Last Admin: 10/13/16 20:39 Dose: 25 mg Trazodone HCl (Desyrel) 50 mg PO HS [facility]O PRN Reason: Protocol Stop: 12/03/16 20:59 Last Admin: 10/13/16 20:39 Dose: 50 mg Zolpidem Tartrate (Ambien) 5 mg PO HS PRN PRN Reason: Insomnia Stop: 12/03/16 01:09 General: Alert, No acute distress HEENT: Atraumatic, PERRLA, EOMI Neck: Supple Cardiovascular: Regular rate, Normal S1, Normal S2 Lungs: Clear to auscultation Abdomen: Bowel sounds Neurological: Normal gait, Normal speech Assessment/Plan - Problem List Patient Problems: All Active Problems Anxiety (Acute) F41.9 Coronary artery disease (Acute) I25.10 Hypokalemia (Acute) E87.6 Hyponatremia (Acute) E87.1 Major depression (Acute) F32.9 Peripheral vascular disease (Acute) I73.9 Psychosis (Acute) F29 Radiculopathy (Acute) M54.10 - Assessment Assessment: Psychosis Major depression disorder Coronary artery disease peripheral vascular disease anxiety radiculopathy leg pain hyponatremia hypokalemia - Plan Plan: medically stable. continue current treatment Nutritional Asmnt/Malnutr-PDOC - Dietary Evaluation Malnutrition Findings (Please click <Entered> for more info): Nutritional Asmnt/Malnutrition Start: 10/07/16 12: 20 Text: Status: Complete Freq: Document 10/07/16 12:20 GSUN (Rec: 10/07/16 12:36 GSCALLIE [email or web address]) Nutritional Asmnt/Malnutrition Patient General Information Nutritional Screening Moderate Risk Screening Diagnosis Major depressive disorder recurrent and severe, psychosis Pertinent Medical Hx/Surgical Hx CAD, anxiety, depression, psychosis, schizophrenia Subjective Information 76 year old male from SNF. RN expressed concern regarding pt 's nutrition status to RD on pt's adm day, RD attempted to visit pt 10/05 and 10/06, both days pt refused to speak to RD . Spoke to pt today, pt was alert, appeared very guarded. Pt refused meals on adm, avg 25% of meals yesterday. Pt suspected water pitcher at bedside was polluted, RD provided new pitcher, pt drank most of it. Pt reported drinking Boost and juice for breakfast, RD encouraged trying solid foods balanced diet for lunch, pt agreeable to plan. Pt stated he "kind of " feels hungry. Pt with few teeth missing, denied difficulties. Pt unsure of UBW , appeared thin, guarded and under blankets, unable to complete physical assessment due to this. CBW 121.2lb via bedscale includes personal blanket. Current Diet Order/ Nutrition Support Regular, Boost Daily Pertinent Medications Tums, Colace, MOM, Theragran, Seroquel Pertinent Labs 10/03: triglycerides 164H, cholesterol 222H, glucose 128H Nutritional Hx/Data Height 1.7 m Height (Calculated Centimeters) 170.2 Current Weight (lbs) 54.975 kg Weight (Calculated Kilograms) 55.0 Weight (Calculated Grams) 05506.4 [place] Body Weight 148 Weight Status Approriate GI Symptoms Food Allergies No Skin Integrity/Comment: Parth 18. Skin intact. Current %PO Negligible < 25% Estimated Nutritional Goals Calories/Kcals/Kg IBW 148lb/67.3kg Kcals Calculated 1683-2019kcal (25-30kcla/kg) Protein Calculated 67g (1g/kg) Fluid: ml 1683-2019ml (1ml/kcal) Nutritional Problem 1. Problem Problem Inadequate oral food beverage intake related to Etiology likely cognition aeb Signs/Symptoms: pt thinks water pitcher is polluted, refusing meals on adm Intervention/Recommendation Comments 1. Continue with current diet order. Avg PO intake is inadequate but appears to be improving. Nursing staff to encourage meals and ensure food safety, pt appeared suspicious regarding food. 2. Monitor weight, BMI 19. Expected Outcomes/Goals Expected Outcomes/Goals 1. PO intake to meet at least 75% of estimated nutritional needs.
[2016-10-14] MEDS: Multivitamin Tab PO SCH (09:26)
[2016-10-14] MEDS: Aspirin 81mg Chewable Tab PO SCH ×2 (09:26→09:31)
--- NOTE | 2016-10-14 20:15 | Progress Notes ---
DATE: 10/14/2016 PSYCHIATRIC PROGRESS NOTE SUBJECTIVE: Staff was spoken to. The patient is interviewed. Mood is noted to be anxious. Affect is constricted. The patient is isolative and withdrawn. The patient is currently on mirtazapine 15 mg at bedtime and Seroquel 25 mg at bedtime. The patient has been able to tolerate the medications. No side effects to the medications are noted. However, the patient continues to be still depressed and not willing to get up and then participate in any of the groups and the patient's personal hygiene still continues to be very poor. ASSESSMENT: The patient is still depressed. PLAN: To increase the dose on the mirtazapine to 30 mg at bedtime and follow the patient up. JOB# [id number]
--- NOTE | 2016-10-15 06:38 | General Progress Note ---
Subjective - Review of Systems Service Date: 10/15/16 Subjective: Patient afebrile, awake, alert. no new complaints. Resting comfortably no acute distress. Objective - Results Result Diagrams: 10/03/16 23:45 10/08/16 09:55 Recent Labs: Laboratory Last Values WBC 7.1 Th/cmm (4.8-10.8) 10/03/16 23:45 RBC 4.69 Mil/cmm (3.80-5.80) 10/03/16 23:45 Hgb 14.4 gm/dL (12.6-17.4) 10/03/16 23:45 Hct 43.4 % (39.0-49.0) 10/03/16 23:45 MCV 92.7 fl (80-99) 10/03/16 23:45 MCH 30.7 pg (27.0-31.0) 10/03/16 23:45 MCHC Differential 33.2 pg (28.0-36.0) 10/03/16 23:45 RDW 12.8 % (11.5-20.0) 10/03/16 23:45 Plt Count 362 Th/cmm (150-400) 10/03/16 23:45 MPV 7.5 fl 10/03/16 23:45 Neutrophils % 64.4 % (40.0-80.0) 10/03/16 23:45 Lymphocytes % 26.1 % (20.0-50.0) 10/03/16 23:45 Monocytes % 7.3 % (2.0-10.0) 10/03/16 23:45 Eosinophils % 1.8 % (0.0-5.0) 10/03/16 23:45 Basophils % 0.4 % (0.0-2.0) 10/03/16 23:45 PT 9.8 SECONDS (9.5-11.5) 10/03/16 23:45 INR 0.94 (0.5-1.4) 10/03/16 23:45 PTT (Actin FS) 24.9 SECONDS (26.0-38.0) L 10/03/16 23:45 Sodium 133 mEq/L (136-145) L 10/08/16 09:55 Potassium 3.7 mEq/L (3.5-5.1) 10/08/16 09:55 Chloride 104 mEq/L (98-107) 10/08/16 09:55 Carbon Dioxide 25.7 mEq/L (21.0-31.0) 10/08/16 09:55 Anion Gap 7.0 (7.0-16.0) 10/08/16 09:55 BUN 18 mg/dL (7-25) 10/08/16 09:55 Creatinine 0.7 mg/dL (0.7-1.3) 10/08/16 09:55 Est GFR ( Amer) TNP 10/08/16 09:55 Est GFR (Non-Af Amer) TNP 10/08/16 09:55 BUN/Creatinine Ratio 25.7 10/08/16 09:55 Glucose 151 mg/dL (70-105) H 10/08/16 09:55 Calcium 8.1 mg/dL (8.6-10.3) L 10/08/16 09:55 Total Bilirubin 0.3 mg/dL (0.3-1.0) 10/03/16 23:45 AST 39 U/L (13-39) 10/03/16 23:45 ALT 67 U/L (7-52) H 10/03/16 23:45 Alkaline Phosphatase 73 U/L (34-104) 10/03/16 23:45 Troponin I 0.02 ng/mL (0.01-0.05) 10/03/16 23:45 Total Protein 5.8 gm/dL (6.0-8.3) L 10/03/16 23:45 Albumin 2.8 gm/dL (4.2-5.5) L 10/03/16 23:45 Globulin 3.0 gm/dL 10/03/16 23:45 Albumin/Globulin Ratio 0.9 (1.0-1.8) L 10/03/16 23:45 Triglycerides 164 mg/dL (<150) H 10/03/16 23:45 Cholesterol 222 mg/dL (<200) H 10/03/16 23:45 LDL Cholesterol Direct 140 mg/dL (75-193) 10/03/16 23:45 HDL Cholesterol 58 mg/dL (23-92) 10/03/16 23:45 TSH 0.89 uIU/ml (0.34-5.60) 10/03/16 23:45 RPR NONREACTIVE (NONREACTIVE) 10/03/16 23:45 - Physical Exam Vitals and I&O: Vital Signs Temp 96.4 F 10/15/16 06:33 Pulse 99 10/15/16 06:33 Resp 18 10/15/16 06:33 BP 126/90 10/15/16 06:33 Pulse Ox 105 10/15/16 06:33 Intake & Output 10/14/16 10/14/16 10/15/16 06:59 18:59 06:59 Intake Total 120 700 120 Balance 120 700 120 Intake: Oral 120 700 120 Other: # Voids 3 3 2 # Bowel Movements 0 Active Medications: Current Medications Acetaminophen (Tylenol) 650 mg PO Q4HR PRN PRN Reason: Mild Pain / Temp above 100 Stop: 12/03/16 01:09 Last Admin: 10/14/16 09:51 Dose: 650 mg Acetaminophen/Hydrocodone Bitart ([place] 5mg/325mg) 1 tab PO Q4H PRN PRN Reason: Pain (Moderate) Stop: 12/03/16 01:35 Al Hydrox/Mg Hydrox/Simethicone (Maalox) 30 ml PO Q4HR PRN PRN Reason: GI DISTRESS Stop: 12/03/16 01:09 Aspirin (Aspirin Chewable) 81 mg PO DAILY [facility] Stop: 12/03/16 08:59 Last Admin: 10/14/16 09:31 Dose: Not Given Calcium Carbonate (Tums) 500 mg PO Q4HR PRN PRN Reason: GI upset Stop: 12/03/16 03:59 Diphenhydramine HCl (Benadryl) 25 mg PO Q4HR PRN PRN Reason: Itching Stop: 12/03/16 01:31 Docusate Sodium (Colace) 250 mg PO BID [facility]INGO Stop: 12/03/16 08:59 Last Admin: 10/14/16 16:27 Dose: Not Given Lorazepam (Ativan) 0.5 mg PO Q4HR PRN; Protocol PRN Reason: Anxiety Stop: 11/03/16 01:09 Mirtazapine (Remeron) 30 mg PO HS DOMINGO PRN Reason: Protocol Stop: 12/09/16 20:59 Last Admin: 10/14/16 20:13 Dose: 30 mg Multivitamins/Vitamin C (Theragran) 1 tab PO DAILY [facility]INGO Stop: 12/03/16 08:59 Last Admin: 10/14/16 09:26 Dose: 1 tab Quetiapine Fumarate (Seroquel) 25 mg PO HS DOMINGO PRN Reason: Protocol Stop: 12/03/16 20:59 Last Admin: 10/14/16 20:13 Dose: 25 mg Trazodone HCl (Desyrel) 50 mg PO HS DOMINGO PRN Reason: Protocol Stop: 12/03/16 20:59 Last Admin: 10/14/16 20:12 Dose: 50 mg Zolpidem Tartrate (Ambien) 5 mg PO HS PRN PRN Reason: Insomnia Stop: 12/03/16 01:09 Last Admin: 10/15/16 00:31 Dose: 5 mg General: Alert, No acute distress HEENT: Atraumatic, PERRLA, EOMI Neck: Supple Cardiovascular: Regular rate, Normal S1, Normal S2 Lungs: Clear to auscultation Abdomen: Bowel sounds Neurological: Normal gait, Normal speech Assessment/Plan - Problem List Patient Problems: All Active Problems Anxiety (Acute) F41.9 Coronary artery disease (Acute) I25.10 Hypokalemia (Acute) E87.6 Hyponatremia (Acute) E87.1 Major depression (Acute) F32.9 Peripheral vascular disease (Acute) I73.9 Psychosis (Acute) F29 Radiculopathy (Acute) M54.10 - Assessment Assessment: Psychosis Major depression disorder Coronary artery disease peripheral vascular disease anxiety radiculopathy leg pain hyponatremia hypokalemia - Plan Plan: medically stable. continue current treatment Nutritional Asmnt/Malnutr-PDOC - Dietary Evaluation Malnutrition Findings (Please click <Entered> for more info): Nutritional Asmnt/Malnutrition Start: 10/07/16 12: 20 Text: Status: Complete Freq: Document 10/07/16 12:20 GSUN (Rec: 10/07/16 12:36 [facility]) Nutritional Asmnt/Malnutrition Patient General Information Nutritional Screening Moderate Risk Screening Diagnosis Major depressive disorder recurrent and severe, psychosis Pertinent Medical Hx/Surgical Hx CAD, anxiety, depression, psychosis, schizophrenia Subjective Information 76 year old male from SNF. RN expressed concern regarding pt 's nutrition status to RD on pt's adm day, RD attempted to visit pt 10/05 and 10/06, both days pt refused to speak to RD . Spoke to pt today, pt was alert, appeared very guarded. Pt refused meals on adm, avg 25% of meals yesterday. Pt suspected water pitcher at bedside was polluted, RD provided new pitcher, pt drank most of it. Pt reported drinking Boost and juice for breakfast, RD encouraged trying solid foods balanced diet for lunch, pt agreeable to plan. Pt stated he "kind of " feels hungry. Pt with few teeth missing, denied difficulties. Pt unsure of UBW , appeared thin, guarded and under blankets, unable to complete physical assessment due to this. CBW 121.2lb via bedscale includes personal blanket. Current Diet Order/ Nutrition Support Regular, Boost Daily Pertinent Medications Tums, Colace, MOM, Theragran, Seroquel Pertinent Labs 10/03: triglycerides 164H, cholesterol 222H, glucose 128H Nutritional Hx/Data Height 1.7 m Height (Calculated Centimeters) 170.2 Current Weight (lbs) 54.975 kg Weight (Calculated Kilograms) 55.0 Weight (Calculated Grams) 38088.4 [place] Body Weight 148 Weight Status Approriate GI Symptoms Food Allergies No Skin Integrity/Comment: Parth 18. Skin intact. Current %PO Negligible < 25% Estimated Nutritional Goals Calories/Kcals/Kg IBW 148lb/67.3kg Kcals Calculated 1683-2019kcal (25-30kcla/kg) Protein Calculated 67g (1g/kg) Fluid: ml 1683-2019ml (1ml/kcal) Nutritional Problem 1. Problem Problem Inadequate oral food beverage intake related to Etiology likely cognition aeb Signs/Symptoms: pt thinks water pitcher is polluted, refusing meals on adm Intervention/Recommendation Comments 1. Continue with current diet order. Avg PO intake is inadequate but appears to be improving. Nursing staff to encourage meals and ensure food safety, pt appeared suspicious regarding food. 2. Monitor weight, BMI 19. Expected Outcomes/Goals Expected Outcomes/Goals 1. PO intake to meet at least 75% of estimated nutritional needs.
[2016-10-15] MEDS: Multivitamin Tab PO SCH (08:55)
[2016-10-15] MEDS: Aspirin 81mg Chewable Tab PO SCH (08:55)
--- NOTE | 2016-10-15 21:17 | Progress Notes ---
DATE: 10/15/2016 PSYCHIATRIC PROGRESS NOTE TIME PATIENT SEEN: 11:00 a.m. SUBJECTIVE: Staff was spoken to. The patient is interviewed. Mood is noted to be depressed. Affect is constricted. Insight and judgment are noted to be still impaired. Impulse control seems to be poor. Coping skills are also noted to be poor. The patient has been isolative and withdrawn. The patient has paranoia, but denies any command hallucinations. No side effects to the medications are noted at this time. ASSESSMENT: The patient is still depressed and has vague suicidal ideation. PLAN: To continue the patient with the supportive therapy. I encouraged the patient to verbalize the concerns rather than to act out. JOB# [id number]
--- NOTE | 2016-10-16 07:08 | General Progress Note ---
Subjective - Review of Systems Service Date: 10/16/16 Subjective: Patient afebrile, awake, alert. no new complaints. Resting comfortably no acute distress. Objective - Results Result Diagrams: 10/03/16 23:45 10/08/16 09:55 Recent Labs: Laboratory Last Values WBC 7.1 Th/cmm (4.8-10.8) 10/03/16 23:45 RBC 4.69 Mil/cmm (3.80-5.80) 10/03/16 23:45 Hgb 14.4 gm/dL (12.6-17.4) 10/03/16 23:45 Hct 43.4 % (39.0-49.0) 10/03/16 23:45 MCV 92.7 fl (80-99) 10/03/16 23:45 MCH 30.7 pg (27.0-31.0) 10/03/16 23:45 MCHC Differential 33.2 pg (28.0-36.0) 10/03/16 23:45 RDW 12.8 % (11.5-20.0) 10/03/16 23:45 Plt Count 362 Th/cmm (150-400) 10/03/16 23:45 MPV 7.5 fl 10/03/16 23:45 Neutrophils % 64.4 % (40.0-80.0) 10/03/16 23:45 Lymphocytes % 26.1 % (20.0-50.0) 10/03/16 23:45 Monocytes % 7.3 % (2.0-10.0) 10/03/16 23:45 Eosinophils % 1.8 % (0.0-5.0) 10/03/16 23:45 Basophils % 0.4 % (0.0-2.0) 10/03/16 23:45 PT 9.8 SECONDS (9.5-11.5) 10/03/16 23:45 INR 0.94 (0.5-1.4) 10/03/16 23:45 PTT (Actin FS) 24.9 SECONDS (26.0-38.0) L 10/03/16 23:45 Sodium 133 mEq/L (136-145) L 10/08/16 09:55 Potassium 3.7 mEq/L (3.5-5.1) 10/08/16 09:55 Chloride 104 mEq/L (98-107) 10/08/16 09:55 Carbon Dioxide 25.7 mEq/L (21.0-31.0) 10/08/16 09:55 Anion Gap 7.0 (7.0-16.0) 10/08/16 09:55 BUN 18 mg/dL (7-25) 10/08/16 09:55 Creatinine 0.7 mg/dL (0.7-1.3) 10/08/16 09:55 Est GFR ( Amer) TNP 10/08/16 09:55 Est GFR (Non-Af Amer) TNP 10/08/16 09:55 BUN/Creatinine Ratio 25.7 10/08/16 09:55 Glucose 151 mg/dL (70-105) H 10/08/16 09:55 POC Glucose 203 MG/DL (70 - 105) H 10/15/16 17:21 Calcium 8.1 mg/dL (8.6-10.3) L 10/08/16 09:55 Total Bilirubin 0.3 mg/dL (0.3-1.0) 10/03/16 23:45 AST 39 U/L (13-39) 10/03/16 23:45 ALT 67 U/L (7-52) H 10/03/16 23:45 Alkaline Phosphatase 73 U/L (34-104) 10/03/16 23:45 Troponin I 0.02 ng/mL (0.01-0.05) 10/03/16 23:45 Total Protein 5.8 gm/dL (6.0-8.3) L 10/03/16 23:45 Albumin 2.8 gm/dL (4.2-5.5) L 10/03/16 23:45 Globulin 3.0 gm/dL 10/03/16 23:45 Albumin/Globulin Ratio 0.9 (1.0-1.8) L 10/03/16 23:45 Triglycerides 164 mg/dL (<150) H 10/03/16 23:45 Cholesterol 222 mg/dL (<200) H 10/03/16 23:45 LDL Cholesterol Direct 140 mg/dL (75-193) 10/03/16 23:45 HDL Cholesterol 58 mg/dL (23-92) 10/03/16 23:45 TSH 0.89 uIU/ml (0.34-5.60) 10/03/16 23:45 RPR NONREACTIVE (NONREACTIVE) 10/03/16 23:45 - Physical Exam Vitals and I&O: Vital Signs Temp 98.3 F 10/15/16 20:34 Pulse 93 10/15/16 20:34 Resp 18 10/15/16 20:34 BP 108/74 10/15/16 20:34 Pulse Ox 97 10/15/16 20:34 Intake & Output 10/15/16 10/16/16 10/16/16 18:59 06:59 18:59 Intake Total 700 240 Balance 700 240 Intake: Oral 700 240 Other: # Voids 2 1 # Bowel Movements 0 Active Medications: Current Medications Acetaminophen (Tylenol) 650 mg PO Q4HR PRN PRN Reason: Mild Pain / Temp above 100 Stop: 12/03/16 01:09 Last Admin: 10/14/16 09:51 Dose: 650 mg Acetaminophen/Hydrocodone Bitart ([place] 5mg/325mg) 1 tab PO Q4H PRN PRN Reason: Pain (Moderate) Stop: 12/03/16 01:35 Al Hydrox/Mg Hydrox/Simethicone (Maalox) 30 ml PO Q4HR PRN PRN Reason: GI DISTRESS Stop: 12/03/16 01:09 Aspirin (Aspirin Chewable) 81 mg PO DAILY [facility] Stop: 12/03/16 08:59 Last Admin: 10/15/16 08:55 Dose: Not Given Calcium Carbonate (Tums) 500 mg PO Q4HR PRN PRN Reason: GI upset Stop: 12/03/16 03:59 Diphenhydramine HCl (Benadryl) 25 mg PO Q4HR PRN PRN Reason: Itching Stop: 12/03/16 01:31 Docusate Sodium (Colace) 250 mg PO BID DOMINGO Stop: 12/03/16 08:59 Last Admin: 10/15/16 16:16 Dose: Not Given Lorazepam (Ativan) 0.5 mg PO Q4HR PRN; Protocol PRN Reason: Anxiety Stop: 11/03/16 01:09 Mirtazapine (Remeron) 30 mg PO HS DOMINGO PRN Reason: Protocol Stop: 12/09/16 20:59 Last Admin: 10/15/16 20:28 Dose: 30 mg Multivitamins/Vitamin C (Theragran) 1 tab PO DAILY [facility]INGO Stop: 12/03/16 08:59 Last Admin: 10/15/16 08:55 Dose: Not Given Quetiapine Fumarate (Seroquel) 25 mg PO HS DOMINGO PRN Reason: Protocol Stop: 12/03/16 20:59 Last Admin: 10/15/16 20:28 Dose: 25 mg Trazodone HCl (Desyrel) 50 mg PO HS DOMINGO PRN Reason: Protocol Stop: 12/03/16 20:59 Last Admin: 10/15/16 20:28 Dose: 50 mg Zolpidem Tartrate (Ambien) 5 mg PO HS PRN PRN Reason: Insomnia Stop: 12/03/16 01:09 Last Admin: 10/15/16 00:31 Dose: 5 mg General: Alert, No acute distress HEENT: Atraumatic, PERRLA, EOMI Neck: Supple Cardiovascular: Regular rate, Normal S1, Normal S2 Lungs: Clear to auscultation Abdomen: Bowel sounds Neurological: Normal gait, Normal speech Assessment/Plan - Problem List Patient Problems: All Active Problems Anxiety (Acute) F41.9 Coronary artery disease (Acute) I25.10 Hypokalemia (Acute) E87.6 Hyponatremia (Acute) E87.1 Major depression (Acute) F32.9 Peripheral vascular disease (Acute) I73.9 Psychosis (Acute) F29 Radiculopathy (Acute) M54.10 - Assessment Assessment: Psychosis Major depression disorder Coronary artery disease peripheral vascular disease anxiety radiculopathy leg pain hyponatremia hypokalemia - Plan Plan: medically stable. continue current treatment Nutritional Asmnt/Malnutr-PDOC - Dietary Evaluation Malnutrition Findings (Please click <Entered> for more info): Nutritional Asmnt/Malnutrition Start: 10/07/16 12: 20 Text: Status: Complete Freq: Document 10/07/16 12:20 GSUN (Rec: 10/07/16 12:36 [email or web address] [email or web address]) Nutritional Asmnt/Malnutrition Patient General Information Nutritional Screening Moderate Risk Screening Diagnosis Major depressive disorder recurrent and severe, psychosis Pertinent Medical Hx/Surgical Hx CAD, anxiety, depression, psychosis, schizophrenia Subjective Information 76 year old male from SNF. RN expressed concern regarding pt 's nutrition status to RD on pt's adm day, RD attempted to visit pt 10/05 and 10/06, both days pt refused to speak to RD . Spoke to pt today, pt was alert, appeared very guarded. Pt refused meals on adm, avg 25% of meals yesterday. Pt suspected water pitcher at bedside was polluted, RD provided new pitcher, pt drank most of it. Pt reported drinking Boost and juice for breakfast, RD encouraged trying solid foods balanced diet for lunch, pt agreeable to plan. Pt stated he "kind of " feels hungry. Pt with few teeth missing, denied difficulties. Pt unsure of UBW , appeared thin, guarded and under blankets, unable to complete physical assessment due to this. CBW 121.2lb via bedscale includes personal blanket. Current Diet Order/ Nutrition Support Regular, Boost Daily Pertinent Medications Tums, Colace, MOM, Theragran, Seroquel Pertinent Labs 10/03: triglycerides 164H, cholesterol 222H, glucose 128H Nutritional Hx/Data Height 1.7 m Height (Calculated Centimeters) 170.2 Current Weight (lbs) 54.975 kg Weight (Calculated Kilograms) 55.0 Weight (Calculated Grams) 56526.4 [place] Body Weight 148 Weight Status Approriate GI Symptoms Food Allergies No Skin Integrity/Comment: Parth 18. Skin intact. Current %PO Negligible < 25% Estimated Nutritional Goals Calories/Kcals/Kg IBW 148lb/67.3kg Kcals Calculated 1683-2019kcal (25-30kcla/kg) Protein Calculated 67g (1g/kg) Fluid: ml 1683-2019ml (1ml/kcal) Nutritional Problem 1. Problem Problem Inadequate oral food beverage intake related to Etiology likely cognition aeb Signs/Symptoms: pt thinks water pitcher is polluted, refusing meals on adm Intervention/Recommendation Comments 1. Continue with current diet order. Avg PO intake is inadequate but appears to be improving. Nursing staff to encourage meals and ensure food safety, pt appeared suspicious regarding food. 2. Monitor weight, BMI 19. Expected Outcomes/Goals Expected Outcomes/Goals 1. PO intake to meet at least 75% of estimated nutritional needs.
[2016-10-16] MEDS: Aspirin 81mg Chewable Tab PO SCH (09:29)
[2016-10-16] MEDS: Multivitamin Tab PO SCH (09:29)
--- NOTE | 2016-10-16 22:22 | Progress Notes ---
DATE: 10/16/2016 SUBJECTIVE: Staff was spoken to. The patient is interviewed. Mood is noted to be less irritable. Affect is appropriate. The patient's sleep and appetite are noted to be improving. The patient has been showing some improvement since he has been on the mirtazapine 30 mg and Seroquel 25 mg at bedtime. No side effects to the medications are noted. The patient has been able to verbalize the concerns rather than to act out at this time. Suicidal ideation is coming under control. ASSESSMENT: The patient's depression is resolving. PLAN: To continue the patient with the supportive therapy. I encouraged the patient to verbalize the concerns rather than to act out. [facility]# [id number]
--- NOTE | 2016-10-17 08:06 | General Progress Note ---
Subjective - Review of Systems Service Date: 10/17/16 Subjective: Patient afebrile, awake, alert. no new complaints. no acute distress. Objective - Results Result Diagrams: 10/03/16 23:45 10/08/16 09:55 Recent Labs: Laboratory Last Values WBC 7.1 Th/cmm (4.8-10.8) 10/03/16 23:45 RBC 4.69 Mil/cmm (3.80-5.80) 10/03/16 23:45 Hgb 14.4 gm/dL (12.6-17.4) 10/03/16 23:45 Hct 43.4 % (39.0-49.0) 10/03/16 23:45 MCV 92.7 fl (80-99) 10/03/16 23:45 MCH 30.7 pg (27.0-31.0) 10/03/16 23:45 MCHC Differential 33.2 pg (28.0-36.0) 10/03/16 23:45 RDW 12.8 % (11.5-20.0) 10/03/16 23:45 Plt Count 362 Th/cmm (150-400) 10/03/16 23:45 MPV 7.5 fl 10/03/16 23:45 Neutrophils % 64.4 % (40.0-80.0) 10/03/16 23:45 Lymphocytes % 26.1 % (20.0-50.0) 10/03/16 23:45 Monocytes % 7.3 % (2.0-10.0) 10/03/16 23:45 Eosinophils % 1.8 % (0.0-5.0) 10/03/16 23:45 Basophils % 0.4 % (0.0-2.0) 10/03/16 23:45 PT 9.8 SECONDS (9.5-11.5) 10/03/16 23:45 INR 0.94 (0.5-1.4) 10/03/16 23:45 PTT (Actin FS) 24.9 SECONDS (26.0-38.0) L 10/03/16 23:45 Sodium 133 mEq/L (136-145) L 10/08/16 09:55 Potassium 3.7 mEq/L (3.5-5.1) 10/08/16 09:55 Chloride 104 mEq/L (98-107) 10/08/16 09:55 Carbon Dioxide 25.7 mEq/L (21.0-31.0) 10/08/16 09:55 Anion Gap 7.0 (7.0-16.0) 10/08/16 09:55 BUN 18 mg/dL (7-25) 10/08/16 09:55 Creatinine 0.7 mg/dL (0.7-1.3) 10/08/16 09:55 Est GFR ( Amer) TNP 10/08/16 09:55 Est GFR (Non-Af Amer) TNP 10/08/16 09:55 BUN/Creatinine Ratio 25.7 10/08/16 09:55 Glucose 151 mg/dL (70-105) H 10/08/16 09:55 POC Glucose 203 MG/DL (70 - 105) H 10/15/16 17:21 Calcium 8.1 mg/dL (8.6-10.3) L 10/08/16 09:55 Total Bilirubin 0.3 mg/dL (0.3-1.0) 10/03/16 23:45 AST 39 U/L (13-39) 10/03/16 23:45 ALT 67 U/L (7-52) H 10/03/16 23:45 Alkaline Phosphatase 73 U/L (34-104) 10/03/16 23:45 Troponin I 0.02 ng/mL (0.01-0.05) 10/03/16 23:45 Total Protein 5.8 gm/dL (6.0-8.3) L 10/03/16 23:45 Albumin 2.8 gm/dL (4.2-5.5) L 10/03/16 23:45 Globulin 3.0 gm/dL 10/03/16 23:45 Albumin/Globulin Ratio 0.9 (1.0-1.8) L 10/03/16 23:45 Triglycerides 164 mg/dL (<150) H 10/03/16 23:45 Cholesterol 222 mg/dL (<200) H 10/03/16 23:45 LDL Cholesterol Direct 140 mg/dL (75-193) 10/03/16 23:45 HDL Cholesterol 58 mg/dL (23-92) 10/03/16 23:45 TSH 0.89 uIU/ml (0.34-5.60) 10/03/16 23:45 RPR NONREACTIVE (NONREACTIVE) 10/03/16 23:45 - Physical Exam Vitals and I&O: Vital Signs Temp 98.6 F 10/17/16 06:47 Pulse 92 10/17/16 06:47 Resp 18 10/17/16 06:47 BP 126/82 10/17/16 06:47 Pulse Ox 96 10/17/16 06:47 Intake & Output 10/16/16 10/17/16 10/17/16 18:59 06:59 18:59 Intake Total 120 Balance 120 Intake: Oral 120 Other: # Voids 3 # Bowel Movements 1 Active Medications: Current Medications Acetaminophen (Tylenol) 650 mg PO Q4HR PRN PRN Reason: Mild Pain / Temp above 100 Stop: 12/03/16 01:09 Last Admin: 10/14/16 09:51 Dose: 650 mg Acetaminophen/Hydrocodone Bitart ([place] 5mg/325mg) 1 tab PO Q4H PRN PRN Reason: Pain (Moderate) Stop: 12/03/16 01:35 Al Hydrox/Mg Hydrox/Simethicone (Maalox) 30 ml PO Q4HR PRN PRN Reason: GI DISTRESS Stop: 12/03/16 01:09 Aspirin (Aspirin Chewable) 81 mg PO DAILY [facility] Stop: 12/03/16 08:59 Last Admin: 10/16/16 09:29 Dose: 81 mg Calcium Carbonate (Tums) 500 mg PO Q4HR PRN PRN Reason: GI upset Stop: 12/03/16 03:59 Diphenhydramine HCl (Benadryl) 25 mg PO Q4HR PRN PRN Reason: Itching Stop: 12/03/16 01:31 Docusate Sodium (Colace) 250 mg PO BID DOMINGO Stop: 12/03/16 08:59 Last Admin: 10/16/16 17:28 Dose: 250 mg Lorazepam (Ativan) 0.5 mg PO Q4HR PRN; Protocol PRN Reason: Anxiety Stop: 11/03/16 01:09 Mirtazapine (Remeron) 30 mg PO HS DOMINGO PRN Reason: Protocol Stop: 12/09/16 20:59 Last Admin: 10/16/16 21:07 Dose: 30 mg Multivitamins/Vitamin C (Theragran) 1 tab PO DAILY [facility]INGO Stop: 12/03/16 08:59 Last Admin: 10/16/16 09:29 Dose: 1 tab Quetiapine Fumarate (Seroquel) 25 mg PO HS DOMINGO PRN Reason: Protocol Stop: 12/03/16 20:59 Last Admin: 10/16/16 21:06 Dose: 25 mg Trazodone HCl (Desyrel) 50 mg PO HS DOMINGO PRN Reason: Protocol Stop: 12/03/16 20:59 Last Admin: 10/16/16 21:06 Dose: 50 mg Zolpidem Tartrate (Ambien) 5 mg PO HS PRN PRN Reason: Insomnia Stop: 12/03/16 01:09 Last Admin: 10/15/16 00:31 Dose: 5 mg General: Alert, No acute distress HEENT: Atraumatic, PERRLA, EOMI Neck: Supple Cardiovascular: Regular rate, Normal S1, Normal S2 Lungs: Clear to auscultation Abdomen: Bowel sounds Neurological: Normal gait, Normal speech Assessment/Plan - Problem List Patient Problems: All Active Problems Anxiety (Acute) F41.9 Coronary artery disease (Acute) I25.10 Hypokalemia (Acute) E87.6 Hyponatremia (Acute) E87.1 Major depression (Acute) F32.9 Peripheral vascular disease (Acute) I73.9 Psychosis (Acute) F29 Radiculopathy (Acute) M54.10 - Assessment Assessment: Psychosis Major depression disorder Coronary artery disease peripheral vascular disease anxiety radiculopathy leg pain hyponatremia hypokalemia - Plan Plan: will continue current treatment. Nutritional Asmnt/Malnutr-PDOC - Dietary Evaluation Malnutrition Findings (Please click <Entered> for more info): Nutritional Asmnt/Malnutrition Start: 10/07/16 12: 20 Text: Status: Complete Freq: Document 10/07/16 12:20 GSUN (Rec: 10/07/16 12:36 [email or web address]) Nutritional Asmnt/Malnutrition Patient General Information Nutritional Screening Moderate Risk Screening Diagnosis Major depressive disorder recurrent and severe, psychosis Pertinent Medical Hx/Surgical Hx CAD, anxiety, depression, psychosis, schizophrenia Subjective Information 76 year old male from SNF. RN expressed concern regarding pt 's nutrition status to RD on pt's adm day, RD attempted to visit pt 7/26 and 10/06, both days pt refused to speak to RD . Spoke to pt today, pt was alert, appeared very guarded. Pt refused meals on adm, avg 25% of meals yesterday. Pt suspected water pitcher at bedside was polluted, RD provided new pitcher, pt drank most of it. Pt reported drinking Boost and juice for breakfast, RD encouraged trying solid foods balanced diet for lunch, pt agreeable to plan. Pt stated he "kind of " feels hungry. Pt with few teeth missing, denied difficulties. Pt unsure of UBW , appeared thin, guarded and under blankets, unable to complete physical assessment due to this. CBW 121.2lb via bedscale includes personal blanket. Current Diet Order/ Nutrition Support Regular, Boost Daily Pertinent Medications Tums, Colace, MOM, Theragran, Seroquel Pertinent Labs 10/03: triglycerides 164H, cholesterol 222H, glucose 128H Nutritional Hx/Data Height 1.7 m Height (Calculated Centimeters) 170.2 Current Weight (lbs) 54.975 kg Weight (Calculated Kilograms) 55.0 Weight (Calculated Grams) 43978.4 [place] Body Weight 148 Weight Status Approriate GI Symptoms Food Allergies No Skin Integrity/Comment: Parth 18. Skin intact. Current %PO Negligible < 25% Estimated Nutritional Goals Calories/Kcals/Kg IBW 148lb/67.3kg Kcals Calculated 1683-2019kcal (25-30kcla/kg) Protein Calculated 67g (1g/kg) Fluid: ml 1683-2019ml (1ml/kcal) Nutritional Problem 1. Problem Problem Inadequate oral food beverage intake related to Etiology likely cognition aeb Signs/Symptoms: pt thinks water pitcher is polluted, refusing meals on adm Intervention/Recommendation Comments 1. Continue with current diet order. Avg PO intake is inadequate but appears to be improving. Nursing staff to encourage meals and ensure food safety, pt appeared suspicious regarding food. 2. Monitor weight, BMI 19. Expected Outcomes/Goals Expected Outcomes/Goals 1. PO intake to meet at least 75% of estimated nutritional needs.
[2016-10-17] MEDS: Multivitamin Tab PO SCH (13:35)
[2016-10-17] MEDS: Aspirin 81mg Chewable Tab PO SCH (13:35)
--- NOTE | 2016-10-18 02:25 | Progress Notes ---
DATE: 10/17/2016 PSYCHIATRIC PROGRESS NOTE TIME PATIENT SEEN: 9:00 a.m. SUBJECTIVE: Staff was spoken to. The patient is interviewed. Mood is noted to be irritable. Affect is constricted. Insight and judgment are noted to be still impaired. Impulse control seems to be fair. The patient's coping skills are noted to be improving. The patient has not been presenting with any threats to harm self or others. Sleep and appetite are also noted to be improving. No side effects to the medications are noted. ASSESSMENT: The patient is stabilizing. PLAN: To continue the patient with the current medications and proceed with the discharge tomorrow. JOB# [id number]
--- NOTE | 2016-10-18 08:51 | General Progress Note ---
Subjective - Review of Systems Service Date: 10/18/16 Subjective: Patient was seen and examined. No acute distress. Afebrile,Awake, alert Objective - Results Result Diagrams: 10/03/16 23:45 10/08/16 09:55 Recent Labs: Laboratory Last Values WBC 7.1 Th/cmm (4.8-10.8) 10/03/16 23:45 RBC 4.69 Mil/cmm (3.80-5.80) 10/03/16 23:45 Hgb 14.4 gm/dL (12.6-17.4) 10/03/16 23:45 Hct 43.4 % (39.0-49.0) 10/03/16 23:45 MCV 92.7 fl (80-99) 10/03/16 23:45 MCH 30.7 pg (27.0-31.0) 10/03/16 23:45 MCHC Differential 33.2 pg (28.0-36.0) 10/03/16 23:45 RDW 12.8 % (11.5-20.0) 10/03/16 23:45 Plt Count 362 Th/cmm (150-400) 10/03/16 23:45 MPV 7.5 fl 10/03/16 23:45 Neutrophils % 64.4 % (40.0-80.0) 10/03/16 23:45 Lymphocytes % 26.1 % (20.0-50.0) 10/03/16 23:45 Monocytes % 7.3 % (2.0-10.0) 10/03/16 23:45 Eosinophils % 1.8 % (0.0-5.0) 10/03/16 23:45 Basophils % 0.4 % (0.0-2.0) 10/03/16 23:45 PT 9.8 SECONDS (9.5-11.5) 10/03/16 23:45 INR 0.94 (0.5-1.4) 10/03/16 23:45 PTT (Actin FS) 24.9 SECONDS (26.0-38.0) L 10/03/16 23:45 Sodium 133 mEq/L (136-145) L 10/08/16 09:55 Potassium 3.7 mEq/L (3.5-5.1) 10/08/16 09:55 Chloride 104 mEq/L (98-107) 10/08/16 09:55 Carbon Dioxide 25.7 mEq/L (21.0-31.0) 10/08/16 09:55 Anion Gap 7.0 (7.0-16.0) 10/08/16 09:55 BUN 18 mg/dL (7-25) 10/08/16 09:55 Creatinine 0.7 mg/dL (0.7-1.3) 10/08/16 09:55 Est GFR ( Amer) TNP 10/08/16 09:55 Est GFR (Non-Af Amer) TNP 10/08/16 09:55 BUN/Creatinine Ratio 25.7 10/08/16 09:55 Glucose 151 mg/dL (70-105) H 10/08/16 09:55 POC Glucose 203 MG/DL (70 - 105) H 10/15/16 17:21 Calcium 8.1 mg/dL (8.6-10.3) L 10/08/16 09:55 Total Bilirubin 0.3 mg/dL (0.3-1.0) 10/03/16 23:45 AST 39 U/L (13-39) 10/03/16 23:45 ALT 67 U/L (7-52) H 10/03/16 23:45 Alkaline Phosphatase 73 U/L (34-104) 10/03/16 23:45 Troponin I 0.02 ng/mL (0.01-0.05) 10/03/16 23:45 Total Protein 5.8 gm/dL (6.0-8.3) L 10/03/16 23:45 Albumin 2.8 gm/dL (4.2-5.5) L 10/03/16 23:45 Globulin 3.0 gm/dL 10/03/16 23:45 Albumin/Globulin Ratio 0.9 (1.0-1.8) L 10/03/16 23:45 Triglycerides 164 mg/dL (<150) H 10/03/16 23:45 Cholesterol 222 mg/dL (<200) H 10/03/16 23:45 LDL Cholesterol Direct 140 mg/dL (75-193) 10/03/16 23:45 HDL Cholesterol 58 mg/dL (23-92) 10/03/16 23:45 TSH 0.89 uIU/ml (0.34-5.60) 10/03/16 23:45 RPR NONREACTIVE (NONREACTIVE) 10/03/16 23:45 - Physical Exam Vitals and I&O: Vital Signs Temp 98 F 10/18/16 07:15 Pulse 88 10/18/16 07:15 Resp 18 10/18/16 07:15 BP 117/81 10/18/16 07:15 Pulse Ox 98 10/18/16 07:15 Intake & Output 10/17/16 10/18/16 10/18/16 18:59 06:59 18:59 Intake Total 120 240 Balance 120 240 Intake: Oral 120 240 Other: # Voids 1 1 Active Medications: Current Medications Acetaminophen (Tylenol) 650 mg PO Q4HR PRN PRN Reason: Mild Pain / Temp above 100 Stop: 12/03/16 01:09 Last Admin: 10/14/16 09:51 Dose: 650 mg Acetaminophen/Hydrocodone Bitart ([place] 5mg/325mg) 1 tab PO Q4H PRN PRN Reason: Pain (Moderate) Stop: 12/03/16 01:35 Al Hydrox/Mg Hydrox/Simethicone (Maalox) 30 ml PO Q4HR PRN PRN Reason: GI DISTRESS Stop: 12/03/16 01:09 Aspirin (Aspirin Chewable) 81 mg PO DAILY [facility] Stop: 12/03/16 08:59 Last Admin: 10/17/16 13:35 Dose: Not Given Calcium Carbonate (Tums) 500 mg PO Q4HR PRN PRN Reason: GI upset Stop: 12/03/16 03:59 Diphenhydramine HCl (Benadryl) 25 mg PO Q4HR PRN PRN Reason: Itching Stop: 12/03/16 01:31 Docusate Sodium (Colace) 250 mg PO BID DOMINGO Stop: 12/03/16 08:59 Last Admin: 10/17/16 21:34 Dose: Not Given Lorazepam (Ativan) 0.5 mg PO Q4HR PRN; Protocol PRN Reason: Anxiety Stop: 11/03/16 01:09 Mirtazapine (Remeron) 30 mg PO HS DOMINGO PRN Reason: Protocol Stop: 12/09/16 20:59 Last Admin: 10/17/16 21:35 Dose: Not Given Multivitamins/Vitamin C (Theragran) 1 tab PO DAILY DOMINGO Stop: 12/03/16 08:59 Last Admin: 10/17/16 13:35 Dose: Not Given Quetiapine Fumarate (Seroquel) 25 mg PO HS DOMINGO PRN Reason: Protocol Stop: 12/17/16 20:59 Trazodone HCl (Desyrel) 50 mg PO HS DOMINGO PRN Reason: Protocol Stop: 12/03/16 20:59 Last Admin: 10/17/16 21:35 Dose: Not Given Zolpidem Tartrate (Ambien) 5 mg PO HS PRN PRN Reason: Insomnia Stop: 12/03/16 01:09 Last Admin: 10/15/16 00:31 Dose: 5 mg General: Alert, No acute distress HEENT: Atraumatic, PERRLA, EOMI Neck: Supple Cardiovascular: Regular rate, Normal S1, Normal S2 Lungs: Clear to auscultation Abdomen: Bowel sounds Neurological: Normal gait, Normal speech Assessment/Plan - Problem List Patient Problems: All Active Problems Anxiety (Acute) F41.9 Coronary artery disease (Acute) I25.10 Hypokalemia (Acute) E87.6 Hyponatremia (Acute) E87.1 Major depression (Acute) F32.9 Peripheral vascular disease (Acute) I73.9 Psychosis (Acute) F29 Radiculopathy (Acute) M54.10 - Assessment Assessment: Psychosis Major depression disorder Coronary artery disease peripheral vascular disease anxiety radiculopathy leg pain hyponatremia hypokalemia - Plan Plan: medically stable . will continue current treatment. Nutritional Asmnt/Malnutr-PDOC - Dietary Evaluation Malnutrition Findings (Please click <Entered> for more info): Nutritional Asmnt/Malnutrition Start: 10/07/16 12: 20 Text: Status: Complete Freq: Document 10/07/16 12:20 GSUN (Rec: 10/07/16 12:36 [email or web address] [email or web address]) Nutritional Asmnt/Malnutrition Patient General Information Nutritional Screening Moderate Risk Screening Diagnosis Major depressive disorder recurrent and severe, psychosis Pertinent Medical Hx/Surgical Hx CAD, anxiety, depression, psychosis, schizophrenia Subjective Information 76 year old male from SNF. RN expressed concern regarding pt 's nutrition status to RD on pt's adm day, RD attempted to visit pt 10/05 and 10/06, both days pt refused to speak to RD . Spoke to pt today, pt was alert, appeared very guarded. Pt refused meals on adm, avg 25% of meals yesterday. Pt suspected water pitcher at bedside was polluted, RD provided new pitcher, pt drank most of it. Pt reported drinking Boost and juice for breakfast, RD encouraged trying solid foods balanced diet for lunch, pt agreeable to plan. Pt stated he "kind of " feels hungry. Pt with few teeth missing, denied difficulties. Pt unsure of UBW , appeared thin, guarded and under blankets, unable to complete physical assessment due to this. CBW 121.2lb via bedscale includes personal blanket. Current Diet Order/ Nutrition Support Regular, Boost Daily Pertinent Medications Tums, Colace, MOM, Theragran, Seroquel Pertinent Labs 10/03: triglycerides 164H, cholesterol 222H, glucose 128H Nutritional Hx/Data Height 1.7 m Height (Calculated Centimeters) 170.2 Current Weight (lbs) 54.975 kg Weight (Calculated Kilograms) 55.0 Weight (Calculated Grams) 41372.4 [place] Body Weight 148 Weight Status Approriate GI Symptoms Food Allergies No Skin Integrity/Comment: [place] 18. Skin intact. Current %PO Negligible < 25% Estimated Nutritional Goals Calories/Kcals/Kg IBW 148lb/67.3kg Kcals Calculated 1683-2019kcal (25-30kcla/kg) Protein Calculated 67g (1g/kg) Fluid: ml 1683-2019ml (1ml/kcal) Nutritional Problem 1. Problem Problem Inadequate oral food beverage intake related to Etiology likely cognition aeb Signs/Symptoms: pt thinks water pitcher is polluted, refusing meals on adm Intervention/Recommendation Comments 1. Continue with current diet order. Avg PO intake is inadequate but appears to be improving. Nursing staff to encourage meals and ensure food safety, pt appeared suspicious regarding food. 2. Monitor weight, BMI 19. Expected Outcomes/Goals Expected Outcomes/Goals 1. PO intake to meet at least 75% of estimated nutritional needs.
--- NOTE | 2016-10-19 01:25 | Progress Notes ---
DATE: 10/18/2016 PSYCHIATRIC PROGRESS NOTE SUBJECTIVE: Staff was spoken to. The patient is interviewed. Mood is noted to be anxious. Affect is appropriate. Not suicidal or homicidal. Insight and judgment are noted to be fair. Impulse control is also noted to be fair. No side effects of the medications are noted. The patient has been able to verbalize the concerns rather than to act out. ASSESSMENT: The patient is stabilizing. PLAN: To discharge the patient today for followup on outpatient basis. JOB# [id number]
== END 2016-10-18 14:45 | disposition home or self-care (01) | DRG 885 ==
LOC: ER 23:29 → GERO 10-04 00:25
PROVIDERS: ADMIT Psychiatry & Neurology Psychiatry; ATTEND Psychiatry & Neurology Psychiatry
DX: F33.2 Major depressive disorder, recurrent severe without psychotic features (principal); F03.90 Unspecified dementia, unspecified severity, without behavioral disturbance, psychotic disturbance, mood disturbance, and anxiety; E87.1 Hypo-osmolality and hyponatremia; F20.9 Schizophrenia, unspecified; F29 Unspecified psychosis not due to a substance or known physiological condition; I25.10 Atherosclerotic heart disease of native coronary artery without angina pectoris; I73.9 Peripheral vascular disease, unspecified; F41.9 Anxiety disorder, unspecified; M54.10 Radiculopathy, site unspecified; E87.6 Hypokalemia; Z79.82 Long term (current) use of aspirin
CPT/HCPCS: 36415-UA; 71010-TC; 80048-TC; 80053-TC; 80061-TC; 82948-90; 84443-TC; 84484-TC; 85025-TC; 85610-TC; 85730-TC; 86592-TC; 90899; 93005; Z7610